=== PATIENT | male | born 1940 | race African-American/Black ===

== ENCOUNTER 2019-11-05 20:01 | Emergency (ER) | payer OTHER ==
[~2019-11-05] VITALS: Ht 167.6 cm; Wt 80.7 kg
[~2019-11-05 20:01] MED LIST: AMLO-483; ASPI81CH43; CLOP75TA28; CYCL5TAB; GLIM-5; LOSARTIN; METF-370; METF-916; METO50TA15; PRAVASTATIN; [UNRECOGNIZED DRUG - CODE]
[2019-11-05 21:57] LABS: Basophils # (auto) 0 10 ^3/uL (0-0.2); Basophils % (auto) 0.5 % (0.0-2.0); Eosinophils # (auto) 0.2 10 ^3/uL (0-0.8); Hematocrit 40.3 % (41.0-53.0); Hemoglobin 13.5 g/dL (13.5-17.5); Lymphocytes # (auto) 1.4 10 ^3/uL (0.4-5.4); Lymphocytes % (auto) 21.9 % (10.0-50.0); Mean Corpuscular Hemoglobin 30.8 pg (28.0-32.0); Mean Corpuscular Hgb Conc. 33.4 g/dL (32.0-36.0); Monocytes # (auto) 0.8 10 ^3/uL (0-1.3); Monocytes % (auto) 11.8 % (0.0-12.0); Neutrophils % (auto) 62.8 % (37.0-80.0); Nucleated Red Blood Cells % 0.1 %; Platelet Count (auto) 184 10^3/uL (140-450); Red Blood Cells 4.38 10^6/uL (4.5-5.90); Red Cell Distribution Width 13.2 % (11.8-14.3); White Blood Cell 6.4 10^3/uL (4.4-10.8)
[2019-11-05 22:17] LABS: Albumin 4.2 g/dL (3.4-5.0); Calcium 8.7 mg/dL (8.5-10.1); Potassium 3.9 mmol/L (3.5-5.1)
[2019-11-05 22:23] LABS: BUN/Creatinine Ratio 14.3; Bilirubin, Total 0.8 mg/dL (0.2-1.0); Total Protein 7.3 g/dL (6.4-8.2)
[2019-11-06 01:44] VITALS: BP 154/86
== END 2019-11-06 01:45 | disposition home or self-care (01) ==
LOC: ER 20:03
DX: R53.1 Weakness (principal); R22.0 Localized swelling, mass and lump, head; R20.0 Anesthesia of skin; R47.81 Slurred speech; E11.9 Type 2 diabetes mellitus without complications; E78.5 Hyperlipidemia, unspecified; I10 Essential (primary) hypertension; Z86.73 Personal history of transient ischemic attack (TIA), and cerebral infarction without residual deficits
CPT/HCPCS: 36415; 70450; 70486; 72125; 80053; 85025

== ENCOUNTER 2021-10-29 13:53 | Emergency (ER) | payer OTHER ==
[~2021-10-29] VITALS: Ht 167.6 cm; Wt 77.0 kg
[~2021-10-29 13:53] MED LIST changes: +CYCL-837; -CYCL5TAB
[2021-10-29 14:07] VITALS: BP 122/60
[2021-10-29 14:39] LABS: Basophils # (auto) 0 10 ^3/uL (0-0.2); Basophils % (auto) 0.5 % (0.0-2.0); Eosinophils # (auto) 0.1 10 ^3/uL (0-0.8); Eosinophils % (auto) 2.4 % (0.0-7.0); Hematocrit 40.8 % (41.0-53.0); Hemoglobin 12.6 g/dL (13.5-17.5); Lymphocytes # (auto) 0.8 10 ^3/uL (0.4-5.4); Lymphocytes % (auto) 17.5 % (10.0-50.0); Mean Corpuscular Hemoglobin 29.3 pg (28.0-32.0); Mean Corpuscular Volume 94.3 fL (80.0-100.0); Monocytes # (auto) 0.4 10 ^3/uL (0-1.3); Monocytes % (auto) 8.7 % (0.0-12.0); Neutrophils # (auto) 3.4 10 ^3/uL (1.6-8.6); Neutrophils % (auto) 70.9 % (37.0-80.0); Nucleated Red Blood Cells % 0.1 %; Red Blood Cells 4.32 10^6/uL (4.5-5.90); Red Cell Distribution Width 13.2 % (11.8-14.3); White Blood Cell 4.8 10^3/uL (4.4-10.8)
[2021-10-29 14:47] LABS: INR 1.09 (0.9-1.15); Partial Thromboplastin Time 27.8 sec (24.6-33.4)
[2021-10-29 17:37] LABS: Albumin 3.9 g/dL (3.4-5.0); Calcium 8.9 mg/dL (8.5-10.1)
[2021-10-29 17:42] LABS: Total Protein 6.5 g/dL (6.4-8.2)
[2021-10-29] MEDS ORDERED: DICY10CA PO (20:27)
== END 2021-10-29 20:57 | disposition home or self-care (01) ==
LOC: ER 13:56
DX: K43.9 Ventral hernia without obstruction or gangrene (principal); E11.9 Type 2 diabetes mellitus without complications; E78.5 Hyperlipidemia, unspecified; I10 Essential (primary) hypertension
CPT/HCPCS: 36415; 71045; 80053; 84484; 85025; 85610; 85730; 93005

== ENCOUNTER 2022-12-11 05:41 | Inpatient (IN) | payer OTHER ==
[~2022-12-11] VITALS: Ht 167.6 cm; Wt 77.6 kg
[~2022-12-11 05:41] MED LIST changes: -AMLO-483; +AMLO1TAB21; +DICY10CA PO; +GLIM-38; -GLIM-5; +METF-1145; -METF-916
[2022-12-11 06:26] LABS: Basophils # (auto) 0 10 ^3/uL (0-0.2); Basophils % (auto) 0.5 % (0.0-2.0); Eosinophils # (auto) 0.2 10 ^3/uL (0-0.8); Eosinophils % (auto) 2.7 % (0.0-7.0); Hematocrit 37.9 % (41.0-53.0); Hemoglobin 12.5 g/dL (13.5-17.5); Lymphocytes # (auto) 1.1 10 ^3/uL (0.4-5.4); Lymphocytes % (auto) 17.5 % (10.0-50.0); Mean Corpuscular Hemoglobin 30.7 pg (28.0-32.0); Mean Corpuscular Hgb Conc. 32.9 g/dL (32.0-36.0); Mean Corpuscular Volume 93.2 fL (80.0-100.0); Monocytes # (auto) 0.6 10 ^3/uL (0-1.3); Monocytes % (auto) 9.6 % (0.0-12.0); Neutrophils # (auto) 4.2 10 ^3/uL (1.6-8.6); Neutrophils % (auto) 69.7 % (37.0-80.0); Nucleated Red Blood Cells % 0.1 %; Red Blood Cells 4.06 10^6/uL (4.5-5.90); Red Cell Distribution Width 13.3 % (11.8-14.3)
[2022-12-11 06:48] LABS: INR 1.14 (0.9-1.15); Partial Thromboplastin Time 27.9 SEC (24.5-34.5); Prothrombin Time 11.9 sec (9.3-11.8)
[2022-12-11 06:52] LABS: Albumin 4.1 g/dL (3.2-4.8); Alkaline Phosphatase 73 U/L (46-116); Anion Gap 5 (5-15); Aspartate Aminotransferase < 8 U/L (13-40); BUN/Creatinine Ratio 9.5 (10.0-20.0); Blood Urea Nitrogen 10 mg/dL (9-23); Carbon Dioxide 27 mmol/L (20-30); Chloride 108 mmol/L (98-107); Glucose 155 mg/dL (74-106); Magnesium 1.6 mg/dL (1.6-2.6); Potassium 4.2 mmol/L (3.5-5.1); Sodium 140 mmol/L (136-145)
[2022-12-11 06:53] LABS: Bilirubin, Total 1.3 mg/dL (0.2-1.0); Total Protein 6.2 g/dL (5.7-8.2)
[2022-12-11 07:05] LABS: Alanine Aminotransferase < 9 U/L (7-40)
[2022-12-11 07:53] LABS: Urine Bacteria NONE SEEN /hpf (None Seen); Urine Blood Negative /uL (Negative); Urine Clarity Clear (Clear); Urine Color Yellow (Yellow); Urine Protein, UAD Negative (Negative); Urine Specific Gravity 1.015 (1.001-1.035); Urine Urobilinogen Normal (Negative); Urine WBC 1 /hpf (0 - 3); Urine pH 6.5 (5.0-8.0)
[2022-12-11 10:43] VITALS: O2SAT 98
[2022-12-11] MEDS ORDERED: ASPirin 81 mg TAB PO ONE (12:00)
[2022-12-11] MEDS ORDERED: ONDANSETRON HCL 4 MG/2 ML VIAL IV PRN (17:15)
[2022-12-11] MEDS ORDERED: NITROGLYCERIN 0.4 MG SL TAB SL PRN (17:15)
[2022-12-11] MEDS ORDERED: DEXTROSE (50%) 50ML SYRG IV PRN (17:15)
[2022-12-11] MEDS ORDERED: MORPHINE SULFATE 4 MG/ML SYR/VIAL IV PRN (17:15)
[2022-12-11] MEDS ORDERED: hydrALAZINE HCL 20 MG/ML VL IV PRN (17:15)
[2022-12-11] MEDS ORDERED: MORPHINE SULFATE INJ 2 MG/ml SYRG IV PRN ×2 (17:15)
[2022-12-11] MEDS ORDERED: DICYCLOMINE HCL 10 MG CAP PO PRN (17:15)
[2022-12-11] MEDS ORDERED: LISINOPRIL 10 MG TAB PO SCH (18:00)
[2022-12-11 21:52] VITALS: BP 137/86; PULSE 75; RESP 16; TEMP 97.8; O2SAT 98
[2022-12-11] MEDS: NITROGLYCERIN 2.5 MG CAP PO SCH (22:00)
[2022-12-11] MEDS ORDERED: ATORVASTATIN 20 MG TAB PO SCH (22:00)
[2022-12-11] MEDS ORDERED: FURO1TAB33 PO (22:16)
[2022-12-11] MEDS ORDERED: TRAZ-228 PO (22:16)
[2022-12-11] MEDS ORDERED: POTA10TA51 PO (22:16)
[2022-12-11] MEDS ORDERED: LOSA100T58 PO (22:16)
[2022-12-11] MEDS: FAMOTIDINE 20 MG TAB PO SCH (22:34)
[2022-12-11] MEDS: METOPROLOL TARTRATE 25 MG TAB PO SCH (22:34)
[2022-12-11] MEDS: ACCU-CHEK COMFORT CURVE STRIP VI SCH (22:34)
[2022-12-11] MEDS: InsuLIN REG 1unit/0.01ml Soln (100units/ml) SC SCH (22:44)
[2022-12-12 05:00] VITALS: BP 141/78; PULSE 63; RESP 18; TEMP 97.8; O2SAT 96
[2022-12-12] MEDS: ACCU-CHEK COMFORT CURVE STRIP VI SCH ×2 (05:51→11:30)
[2022-12-12] MEDS: InsuLIN REG 1unit/0.01ml Soln (100units/ml) SC SCH ×2 (05:51→11:30)
[2022-12-12 06:55] LABS: Basophils # (auto) 0 10 ^3/uL (0-0.2); Basophils % (auto) 0.4 % (0.0-2.0); Eosinophils # (auto) 0.1 10 ^3/uL (0-0.8); Eosinophils % (auto) 2.2 % (0.0-7.0); Hematocrit 38.3 % (41.0-53.0); Hemoglobin 12.7 g/dL (13.5-17.5); Lymphocytes # (auto) 0.8 10 ^3/uL (0.4-5.4); Lymphocytes % (auto) 13.1 % (10.0-50.0); Mean Corpuscular Hemoglobin 30.6 pg (28.0-32.0); Mean Corpuscular Hgb Conc. 33.2 g/dL (32.0-36.0); Mean Corpuscular Volume 92.1 fL (80.0-100.0); Monocytes # (auto) 0.6 10 ^3/uL (0-1.3); Monocytes % (auto) 10.4 % (0.0-12.0); Neutrophils # (auto) 4.3 10 ^3/uL (1.6-8.6); Neutrophils % (auto) 73.9 % (37.0-80.0); Nucleated Red Blood Cells % 0.1 %; Red Blood Cells 4.16 10^6/uL (4.5-5.90); Red Cell Distribution Width 13.1 % (11.8-14.3); White Blood Cell 5.8 10^3/uL (4.4-10.8)
[2022-12-12 07:00] LABS: Albumin 3.9 g/dL (3.2-4.8); Alkaline Phosphatase 68 U/L (46-116); Aspartate Aminotransferase 9 U/L (13-40); BUN/Creatinine Ratio 10.7 (10.0-20.0); Bilirubin, Total 1.4 mg/dL (0.2-1.0); Blood Urea Nitrogen 9 mg/dL (9-23); Carbon Dioxide 27 mmol/L (20-30); Cholesterol 129 mg/dL (< 200); Glucose 81 mg/dL (74-106); HDL Cholesterol 48 mg/dL (40-59); LDL Cholesterol 64 mg/dL (< 100); Triglycerides 67 mg/dL (< 150)
[2022-12-12 07:32] LABS: Anion Gap 8 (5-15); Chloride 106 mmol/L (98-107); Potassium 3.5 mmol/L (3.5-5.1); Sodium 141 mmol/L (136-145)
[2022-12-12 07:33] LABS: Alanine Aminotransferase < 9 U/L (7-40)
[2022-12-12 08:00] VITALS: BP 126/67; PULSE 64; PULSE 65; RESP 19; TEMP 97.5; O2SAT 97
[2022-12-12 08:55] VITALS: BP 126/67; PULSE 64; RESP 19; TEMP 97.5; O2SAT 97
[2022-12-12] MEDS ORDERED: ASPirin 81 mg TAB PO SCH (10:00)
[2022-12-12] MEDS ORDERED: HCTZ 25 MG TAB PO SCH (10:00)
[2022-12-12] MEDS ORDERED: NITROGLYCERIN 0.4 MG SL TAB SL ONE (10:00)
[2022-12-12] MEDS ORDERED: ENOXAPARIN SOD 40 MG/0.4 ML SYRINGE SC SCH (10:00)
[2022-12-12] MEDS ORDERED: CLOPIDOGREL BISULFATE 75 MG TAB PO SCH (10:00)
[2022-12-12] MEDS: NITROGLYCERIN 2.5 MG CAP PO SCH (10:00)
[2022-12-12] MEDS: FAMOTIDINE 20 MG TAB PO SCH (11:06)
[2022-12-12] MEDS: METOPROLOL TARTRATE 25 MG TAB PO SCH (11:08)
[2022-12-12 11:37] LABS: Lipase 52 U/L (12-53)
[2022-12-12 13:02] VITALS: BP 155/75; PULSE 69; RESP 19; TEMP 98.4; O2SAT 96
[2022-12-12] MEDS ORDERED: PANT40T PO (15:59)
== END 2022-12-12 17:45 | disposition home or self-care (01) | DRG 392 ==
LOC: ER 05:41 → TELE 17:11 → TELE-EAST 21:52
PROVIDERS: ADMIT Hospitalist; ATTEND Hospitalist
DX: K21.9 Gastro-esophageal reflux disease without esophagitis (principal); I25.10 Atherosclerotic heart disease of native coronary artery without angina pectoris; I10 Essential (primary) hypertension; E78.5 Hyperlipidemia, unspecified; I70.0 Atherosclerosis of aorta; E11.9 Type 2 diabetes mellitus without complications; Z82.49 Family history of ischemic heart disease and other diseases of the circulatory system; Z86.79 Personal history of other diseases of the circulatory system; K46.9 Unspecified abdominal hernia without obstruction or gangrene
CPT/HCPCS: 36415; 71045; 80053; 80061; 81001; 82962; 83036; 83690; 83735; 83880; 84484; 85025; 85610; 85730; 93005; 93306; G0378; J1815

== ENCOUNTER 2023-03-21 07:10 | Emergency (ER) | payer OTHER ==
[~2023-03-21] VITALS: Ht 167.6 cm; Wt 77.7 kg
[~2023-03-21 07:10] MED LIST changes: -CLOP75TA28; -CYCL-837; -DICY10CA PO; +FURO1TAB33 PO; -GLIM-38; +LOSA100T58 PO; +PANT40T PO; +POTA10TA51 PO; +TRAZ-228 PO
[2023-03-21 08:53] LABS: Basophils # (auto) 0 10 ^3/uL (0-0.2); Basophils % (auto) 0.4 % (0.0-2.0); Eosinophils # (auto) 0.2 10 ^3/uL (0-0.8); Eosinophils % (auto) 2.5 % (0.0-7.0); Hematocrit 43.1 % (41.0-53.0); Hemoglobin 13.6 g/dL (13.5-17.5); Lymphocytes % (auto) 15.9 % (10.0-50.0); Mean Corpuscular Hemoglobin 30.2 pg (28.0-32.0); Mean Corpuscular Hgb Conc. 31.5 g/dL (32.0-36.0); Mean Corpuscular Volume 95.8 fL (80.0-100.0); Monocytes # (auto) 0.7 10 ^3/uL (0-1.3); Monocytes % (auto) 11.7 % (0.0-12.0); Neutrophils # (auto) 4.3 10 ^3/uL (1.6-8.6); Neutrophils % (auto) 69.5 % (37.0-80.0); Nucleated Red Blood Cells % 0.1 %; Red Cell Distribution Width 13.2 % (11.8-14.3); White Blood Cell 6.1 10^3/uL (4.4-10.8)
[2023-03-21 09:16] LABS: Anion Gap 3 (5-15); Carbon Dioxide 30 mmol/L (20-30); Chloride 108 mmol/L (98-107); Potassium 4.3 mmol/L (3.5-5.1); Sodium 141 mmol/L (136-145)
[2023-03-21 09:17] LABS: Calcium 9.8 mg/dL (8.5-10.1)
[2023-03-21 09:22] LABS: BUN/Creatinine Ratio 7.8 (10.0-20.0); Blood Urea Nitrogen 8 mg/dL (9-23); Glucose 148 mg/dL (74-106)
[2023-03-21 09:26] LABS: INR 1.09 (0.9-1.15); Prothrombin Time 11.4 sec (9.3-11.8)
[2023-03-21] MEDS ORDERED: IOHEXOL 350 MG/ML 100ML IJ ONE (09:31)
[2023-03-21 10:11] LABS: Erythrocyte Sedimentation Rate 2 mm/hr (0-20)
[2023-03-21] MEDS ORDERED: ACET500T58 PO (13:56)
[2023-03-21 17:58] VITALS: BP 155/75; PULSE 61; RESP 16; TEMP 98.6; O2SAT 100
== END 2023-03-21 18:04 | disposition home or self-care (01) ==
LOC: ER 07:10
DX: R51.9 Headache, unspecified (principal); I10 Essential (primary) hypertension; E11.9 Type 2 diabetes mellitus without complications; E78.5 Hyperlipidemia, unspecified; Z79.82 Long term (current) use of aspirin; Z79.899 Other long term (current) drug therapy
CPT/HCPCS: 36415; 70450; 71275; 80048; 84484; 85025; 85610; 85652; 99285; Q9967

== ENCOUNTER 2023-08-12 15:22 | Inpatient (IN) | payer OTHER ==
[~2023-08-12] VITALS: Ht 167.6 cm; Wt 78.7 kg
[~2023-08-12 15:22] MED LIST changes: +ACET500T58 PO; +LOSA-535 PO; -LOSA100T58 PO; +POTA-36 PO; -POTA10TA51 PO
[2023-08-12 15:46] LABS: Basophils # (auto) 0 10 ^3/uL (0-0.2); Basophils % (auto) 0.4 % (0.0-2.0); Eosinophils # (auto) 0.1 10 ^3/uL (0-0.8); Eosinophils % (auto) 1.7 % (0.0-7.0); Hematocrit 36.8 % (41.0-53.0); Lymphocytes # (auto) 0.8 10 ^3/uL (0.4-5.4); Lymphocytes % (auto) 12.8 % (10.0-50.0); Mean Corpuscular Hemoglobin 30.3 pg (28.0-32.0); Mean Corpuscular Hgb Conc. 32.5 g/dL (32.0-36.0); Mean Corpuscular Volume 93.2 fL (80.0-100.0); Monocytes # (auto) 0.5 10 ^3/uL (0-1.3); Monocytes % (auto) 7.7 % (0.0-12.0); Neutrophils # (auto) 4.9 10 ^3/uL (1.6-8.6); Neutrophils % (auto) 77.4 % (37.0-80.0); Nucleated Red Blood Cells % 0.1 %; Red Blood Cells 3.95 10^6/uL (4.5-5.90); Red Cell Distribution Width 13.5 % (11.8-14.3); White Blood Cell 6.3 10^3/uL (4.4-10.8)
[2023-08-12 16:00] LABS: Alanine Aminotransferase 11 U/L (7-40); Albumin 3.9 g/dL (3.2-4.8); Alkaline Phosphatase 70 U/L (46-116); Anion Gap 5 (5-15); Aspartate Aminotransferase 9 U/L (13-40); Blood Urea Nitrogen 7 mg/dL (9-23); Calcium 9.4 mg/dL (8.7-10.4); Carbon Dioxide 25 mmol/L (20-30); Chloride 109 mmol/L (98-107); Glucose 240 mg/dL (74-106); Sodium 139 mmol/L (136-145)
[2023-08-12 16:01] LABS: Bilirubin, Total 1.3 mg/dL (0.2-1.0)
[2023-08-12 18:25] LABS: Urine Bacteria None Seen /hpf (None Seen)
[2023-08-12 18:39] LABS: Urine Blood Negative /uL (Negative); Urine Clarity Clear (Clear); Urine Color Yellow (Yellow); Urine Hyaline Cast FEW /lpf (0 - 2); Urine Mucus FEW (None Seen); Urine Protein, UAD TRACE (Negative); Urine Specific Gravity 1.025 (1.001-1.035); Urine Urobilinogen 8 mg/dL (Negative); Urine WBC 2 /hpf (0 - 3); Urine pH 6.5 (5.0-9.0)
[2023-08-12] MEDS ORDERED: DEXTROSE (50%) 50ML SYRG IV PRN (20:30)
[2023-08-12] MEDS ORDERED: ONDANSETRON HCL 4 MG/2 ML VIAL IV PRN (20:30)
[2023-08-12 21:25] VITALS: PULSE 66; RESP 16; O2SAT 96
[2023-08-12] MEDS ORDERED: NITROGLYCERIN 0.4 MG SL TAB SL PRN (21:45)
[2023-08-12] MEDS ORDERED: MET50T PO (21:48)
[2023-08-12] MEDS ORDERED: PRAV20TA3 PO (21:51)
[2023-08-12] MEDS: InsuLIN REG 1unit/0.01ml Soln (100units/ml) SC SCH (22:00)
[2023-08-12] MEDS: SODIUM CHLORIDE 0.9% 1,000 ML IV ONE ×2 (22:01)
[2023-08-12] MEDS: ACCU-CHEK COMFORT CURVE STRIP VI SCH (22:19)
[2023-08-12] MEDS: hydrALAZINE HCL 20 MG/ML VL IV PRN (22:39)
[2023-08-12 23:49] VITALS: BP 167/80; PULSE 79; RESP 18; TEMP 98; O2SAT 98
[2023-08-13] VITALS (8 sets, daily range): BP systolic 136–168; BP diastolic 67–90; PULSE 61–96; RESP 18–20; TEMP 97.8–98.9; O2SAT 96–100
[2023-08-13] MEDS: amLODIPine BESYLATE 5 MG TAB PO ONE (02:26)
[2023-08-13] MEDS: ACETAMINOPHEN 325 MG TAB PO PRN (05:34)
[2023-08-13] MEDS ORDERED: PATIENTS OWN MEDICATION (Trazodone Hcl 1 TAB) PO PRN (06:15)
[2023-08-13 06:44] LABS: Chloride 111 mmol/L (98-107); Potassium 3.5 mmol/L (3.5-5.1); Sodium 142 mmol/L (136-145)
[2023-08-13 06:45] LABS: Anion Gap 4 (5-15); Calcium 8.9 mg/dL (8.5-10.1); Carbon Dioxide 27 mmol/L (20-30)
[2023-08-13 06:50] LABS: BUN/Creatinine Ratio 13.9 (10.0-20.0); Blood Urea Nitrogen 10 mg/dL (9-23)
[2023-08-13 06:52] LABS: Glucose 74 mg/dL (74-106)
[2023-08-13] MEDS ORDERED: IOHEXOL 350 MG/ML 100ML IJ ONE ×2 (08:28→11:30)
[2023-08-13] MEDS ORDERED: PATIENTS OWN MEDICATION (Losartan Potassium 1 TAB) PO SCH (10:00)
[2023-08-13] MEDS: METOPROLOL TARTRATE 50 MG TAB PO SCH (10:51)
[2023-08-13] MEDS: LOSARTAN POTASSIUM 50 MG TAB PO SCH (10:51)
[2023-08-13] MEDS: ENOXAPARIN SOD 40 MG/0.4 ML SYRINGE SC SCH (10:51)
[2023-08-13] MEDS: PRAVASTATIN SODIUM 20 MG TAB PO SCH (10:52)
[2023-08-13] MEDS: amLODIPine BESYLATE 5 MG TAB PO SCH (10:52)
[2023-08-13] MEDS: ASPirin 81 mg TAB PO SCH (10:53)
[2023-08-13] MEDS: FAMOTIDINE 20 MG TAB PO SCH (10:53)
[2023-08-13] MEDS: IBUPROFEN 400 MG TAB PO PRN (18:04)
[2023-08-13] MEDS: traZODone HCL 50 MG TAB PO PRN (22:30)
[2023-08-14] VITALS (8 sets, daily range): BP systolic 137–154; BP diastolic 68–91; PULSE 68–110; RESP 14–19; TEMP 97.8–98.5; O2SAT 96–100
[2023-08-14] MEDS: amLODIPine BESYLATE 5 MG TAB PO SCH (10:11)
[2023-08-14] MEDS: REGADENOSON 0.4 MG/5 ML SYRG IV ONE ×2 (13:44→13:50)
[2023-08-15 06:43] VITALS: BP 143/78; PULSE 87; RESP 16; TEMP 97.7; O2SAT 96
[2023-08-15 06:44] VITALS: BP 132/81; PULSE 84; RESP 16; TEMP 97.8; O2SAT 96
[2023-08-15 07:30] VITALS: PULSE 84; O2SAT 97
[2023-08-15 08:50] VITALS: BP 135/84; PULSE 82; RESP 18; TEMP 98.6; O2SAT 98
[2023-08-15 13:00] VITALS: BP 149/74; PULSE 66; RESP 95; TEMP 98.6; O2SAT 93
[2023-08-15] MEDS ORDERED: PANT40T PO (13:27)
[2023-08-15] MEDS ORDERED: LOSA-535 PO (13:27)
[2023-08-15 15:11] VITALS: BP 135/84; PULSE 82; RESP 18; TEMP 37; O2SAT 97
== END 2023-08-15 15:50 | disposition home or self-care (01) | DRG 206 ==
LOC: ER 15:22 → TELE 20:44 → TELE-CENTR 23:48 → OBSVTOIN 08-14 08:33
PROVIDERS: ADMIT Nurse Practitioner Family; ATTEND Nurse Practitioner Family
DX: M94.0 Chondrocostal junction syndrome [Tietze] (principal); E11.9 Type 2 diabetes mellitus without complications; I10 Essential (primary) hypertension; F32.A Depression, unspecified; F41.9 Anxiety disorder, unspecified; K21.9 Gastro-esophageal reflux disease without esophagitis; R62.7 Adult failure to thrive; E78.5 Hyperlipidemia, unspecified; I71.20 Thoracic aortic aneurysm, without rupture, unspecified; Z79.1 Long term (current) use of non-steroidal anti-inflammatories (NSAID); Z79.899 Other long term (current) drug therapy; Z79.82 Long term (current) use of aspirin; Z79.84 Long term (current) use of oral hypoglycemic drugs; Z87.891 Personal history of nicotine dependence; Z68.28 Body mass index [BMI] 28.0-28.9, adult
CPT/HCPCS: 36415; 71046; 71275; 80048; 80053; 81001; 82607; 82962; 83036; 84484; 85025; 93005; 93017; 93306; 96361; 96374; 97110; 97163; G0378; J1815

== ENCOUNTER 2024-03-09 10:58 | Emergency (ER) | payer OTHER ==
[~2024-03-09] VITALS: Ht 167.6 cm; Wt 80.0 kg
[~2024-03-09 10:58] MED LIST changes: -AMLO1TAB21; -FURO1TAB33 PO; -LOSARTIN; +MET50T PO; -METF-370; -METO50TA15; -POTA-36 PO; +PRAV20TA3 PO; -PRAVASTATIN
--- NOTE | 2024-03-09 11:16 | ECG ---
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
--- NOTE | 2024-03-09 11:39 | ED.PDOC ---
HPI Comments 83-year-old male who comes in with chief complaint of chest pain and headache since last night. The patient states that the symptoms started at home. The pain in his chest is left-sided and described as tightness in the chest. He rates it as a 6/10. He denies any shortness a breath. He states that he has has a history of this in the past but has never had a heart attack in the past. He did take his 81 mg of aspirin this morning. The patient states that the chest pain is nonradiating at this time. The patient was also having a left- sided headache that he rates as a 7/10. There has been no fevers or chills. The patient was able to ambulate into the emergency department's without any difficulty. Chief Complaint: Chest Pain Time Seen by MD: 11:08 Primary Care Provider: nicole Wheat Notes: Nurses Notes, Medications, Allergies (No allergies to medications) Allergies: Coded Allergies: NO KNOWN ALLERGIES (Unverified , 03/18/11) Home Meds Active Scripts Pantoprazole Sodium Sesquihydr (Pantoprazole Sodium) 40 Mg Tab, 40 MG PO DAILY, #60 TAB Prov:DIANNA JEAN BAPTISTE MD 08/15/23 Losartan Potassium (Losartan Potassium) 100 Mg Tab, 1 TAB PO DAILY, #60 TAB Prov:DIANNA JEAN BAPTISTE MD 08/15/23 Acetaminophen (Acetaminophen) 500 Mg Tab, 500 MG PO Q6HP PRN for 5 Days, #20 TAB Prov:JOEL SOUSA MD 03/21/23 Reported Medications Pravastatin Sodium (PRAVACHOL TABLET) 20 Mg Tb, 80 MG PO DAILY, TAB 08/12/23 Metoprolol Tartrate (LOPRESSOR TABLET) 50 Mg Tb, 50 MG PO DAILY, TAB 08/12/23 Trazodone Hcl (Trazodone Hcl) 100 Mg Tab, 1 TAB PO QHSP PRN for FOR INSOMNIA 12/11/22 Nitroglycerin (Nitroglycerin) 0.3 Mg Sub 03/19/11 Aspirin (Asa) 81 Mg Ch 03/19/11 Metformin Hydrochloride (Metformin Hcl Er) 500 Mg Tab 03/18/11 Information Source: Patient Mode of Arrival: Ambulatory Severity: Moderate Timing: Hours Duration: Since onset Prehospital treatment: None Location: Chest (L) Radiation: No Radiation Quality: Pressure, Tightness Onset: At Rest Cardiac Risk Factors: Family History, Hyperlipidemia, HTN, Diabetes PE Risk Factors: None History of: Similar pain in past Modifying Factors: Nothing Associated Signs and Symptoms: Other (The patient was also complaining of a headache) Past Medical History PAST MEDICAL HISTORY: Depression, DM, High Lipids, HTN Family History Family History: Family hx of heart chuck Social History Smoker: Non-Smoker Alcohol: Denies ETOH Use Drugs: Denies Drug Use Lives In: Home Physical Exam General Appearance: Mild Distress HEENT: Normal ENT Inspection, Pharynx Normal, TMs Normal Neck: Full Range of Motion, Non-Tender, Normal, Normal Inspection Respiratory: Chest Non-Tender, Lungs Clear, No Accessory Muscle Use, No Respiratory Distress, Normal Breath Sounds Cardiovascular: No Edema, No JVD, No Murmur, No Gallop, Normal Peripheral Pulses, Regular Rate/Rhythm Breast Exam: Deferred Gastrointestinal: No Organomegaly, Non Tender, No Pulsatile Mass, Normal Bowel Sounds, Soft Genitalia: Deferred Pelvic: Deferred Rectal: Deferred Extremities: No calf tenderness, Normal capillary refill, Normal inspection, Normal range of motion, Non-tender, No pedal edema Musculoskeletal : Apperance: Normal 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 Was a procedure done?: No CP Differential Dx Differential Diagnosis: Angina, IA, Pulmonary Embolus Differential Diagnosis: CHF Differential Diagnosis: Pericarditis X-Ray, Labs, Meds, VS Vital Signs Date Time Temp Pulse Resp B/P (MAP) Pulse Ox O2 Delivery O2 Flow Rate FiO2 03/09/24 15:04 98.9 69 15 146/79 (101) 99 98.9 03/09/24 13:48 64 03/09/24 11:55 66 03/09/24 11:39 66 03/09/24 11:10 98.4 65 17 193/78 (116) 95 03/09/24 11:04 66 Lab Test 03/09/24 13:52 03/09/24 12:05 03/09/24 11:12 Range/Units Troponin I High Sensitivity 3 L 5 5 </=54 ng/L White Blood Count 5.1 4.4-10.8 10^3/uL Red Blood Count 4.30 L 4.5-5.90 10^6/uL Hemoglobin 13.3 L 13.5-17.5 g/dL Hematocrit 40.7 L 41.0-53.0 % Mean Corpuscular Volume 94.6 80.0-100.0 fL Mean Corpuscular Hemoglobin 30.9 28.0-32.0 pg Mean Corpuscular Hemoglobin Concent 32.7 32.0-36.0 g/dL Red Cell Distribution Width 13.1 11.8-14.3 % Platelet Count 163 140-450 10^3/uL Mean Platelet Volume 10.1 6.9-10.8 fL Neutrophils (%) (Auto) 71.5 37.0-80.0 % Lymphocytes (%) (Auto) 15.8 10.0-50.0 % Monocytes (%) (Auto) 10.1 0.0-12.0 % Eosinophils (%) (Auto) 2.1 0.0-7.0 % Basophils (%) (Auto) 0.5 0.0-2.0 % Neutrophils # (Auto) 3.7 1.6-8.6 10 ^3/uL Lymphocytes # (Auto) 0.8 0.4-5.4 10 ^3/uL Monocytes # (Auto) 0.5 0-1.3 10 ^3/uL Eosinophils # (Auto) 0.1 0-0.8 10 ^3/uL Basophils # (Auto) 0 0-0.2 10 ^3/uL Nucleated Red Blood Cells 0.0 % Sodium Level 140 136-145 mmol/L Potassium Level 4.3 3.5-5.1 mmol/L Chloride Level 105 98-107 mmol/L Carbon Dioxide Level 29 20-31 mmol/L Anion Gap 6 5-15 Blood Urea Nitrogen 10 9-23 mg/dL Creatinine 1.03 0.700-1.30 mg/dL Glomerular Filtration Rate Calc 73 >90 mL/min BUN/Creatinine Ratio 9.7 L 10.0-20.0 Serum Glucose 244 H 74-106 mg/dL Calcium Level 9.8 8.7-10.4 mg/dL Magnesium Level 1.7 1.6-2.6 mg/dL Total Bilirubin 1.4 H 0.2-1.0 mg/dL Aspartate Amino Transferase (AST) 12 L 13-40 U/L Alanine Aminotransferase (ALT) 10 7-40 U/L Alkaline Phosphatase 85 46-116 U/L B-Type Natriuretic Peptide 95.05 0-100 pg/mL Total Protein 6.5 5.7-8.2 g/dL Albumin 4.2 3.2-4.8 g/dL IV Hep-Lock was established The patient was already taken aspirin prior to arrival in the emergency department's The blood pressure was elevated at 190 3/78 The patient also has a accelerated hypertension CHEST RADIOGRAPH IMPRESSION: No acute disease. The patient's CBC is within normal limits The chemistry panel shows hyperglycemia at 244 The troponin level x3 is negative We contacted the hospitalist and stated that the patient needs to be admitted at this time. The hospitalist ordered a CT scan of the chest to rule out a PE which was negative. We then spoke with the hospitalist and he states that he is going to set the patient up with a cardiology visit tomorrow. The hospitalist is now discharged in the patient. Images Reviewed?: Images reviewed and evaluated by me Time of 1ST Reevaluation: 11:38 Reevaluation 1ST: Unchanged Patient Education/Counseling: Diagnosis, Treatment, Prognosis Family Education/Counseling: No Family Present Departure 1 Departure Time of Disposition: 11:38 Impression: Primary Impression: Acute coronary syndrome Additional Impression: Accelerated hypertension Disposition: 09 ADMITTED INPATIENT Condition: Fair Discharged With: Self Critical Care Note Critical Care Time?: No Stability Stability form required: Yes Unstable for transfer: Telemetry monitoring (Telemetry monitoring required), ED Physician Assesment (Clinical assesment) Heart Score Heart Score: Heart Score Response (Comments) Value History Moderate Suspicious 1 EKG Repolarization Disturb 1 Age >65 2 Risk Factors >3 or Hx ASHD 2 Troponin Normal limit 0 Total 6 I personally scribed for SHAHID MCMAHON MD ([email or web address]) on 03/09/24 at 12:07. Electronically submitted by Diane Gomez ([facility]). SHAHID MCMAHON MD Mar 09, 2024 11:39
--- NOTE | 2024-03-09 11:42 | DVH ---
CHEST RADIOGRAPH Indication: CP Technique: Single frontal view of the chest was obtained COMPARISON: XY CHEST PORTABLE on DOS: 12/11/22, CHEST PORTABLE on DOS: 10/29/21, CXRP on DOS: 10/29/21 FINDINGS: Lines and Tubes: None Lungs: Clear Pleura: No effusion. No pneumothorax. Cardiomediastinal contours: Unremarkable Bones: Unremarkable IMPRESSION: No acute disease.
--- NOTE | 2024-03-09 11:56 | ECG ---
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
[2024-03-09 12:04] LABS: Basophils # (auto) 0 10 ^3/uL (0-0.2); Basophils % (auto) 0.5 % (0.0-2.0); Eosinophils # (auto) 0.1 10 ^3/uL (0-0.8); Eosinophils % (auto) 2.1 % (0.0-7.0); Hematocrit 40.7 % (41.0-53.0); Hemoglobin 13.3 g/dL (13.5-17.5); Lymphocytes # (auto) 0.8 10 ^3/uL (0.4-5.4); Lymphocytes % (auto) 15.8 % (10.0-50.0); Mean Corpuscular Hemoglobin 30.9 pg (28.0-32.0); Mean Corpuscular Hgb Conc. 32.7 g/dL (32.0-36.0); Mean Corpuscular Volume 94.6 fL (80.0-100.0); Monocytes # (auto) 0.5 10 ^3/uL (0-1.3); Monocytes % (auto) 10.1 % (0.0-12.0); Neutrophils # (auto) 3.7 10 ^3/uL (1.6-8.6); Neutrophils % (auto) 71.5 % (37.0-80.0); Platelet Count (auto) 163 10^3/uL (140-450); Red Cell Distribution Width 13.1 % (11.8-14.3); White Blood Cell 5.1 10^3/uL (4.4-10.8)
[2024-03-09 12:31] LABS: Alanine Aminotransferase 10 U/L (7-40); Albumin 4.2 g/dL (3.2-4.8); Alkaline Phosphatase 85 U/L (46-116); Anion Gap 6 (5-15); BUN/Creatinine Ratio 9.7 (10.0-20.0); Blood Urea Nitrogen 10 mg/dL (9-23); Calcium 9.8 mg/dL (8.7-10.4); Carbon Dioxide 29 mmol/L (20-31); Chloride 105 mmol/L (98-107); Magnesium 1.7 mg/dL (1.6-2.6); Potassium 4.3 mmol/L (3.5-5.1); Sodium 140 mmol/L (136-145)
[2024-03-09 12:32] LABS: Total Protein 6.5 g/dL (5.7-8.2)
[2024-03-09 12:42] LABS: Aspartate Aminotransferase 12 U/L (13-40); Bilirubin, Total 1.4 mg/dL (0.2-1.0); Glucose 244 mg/dL (74-106)
--- NOTE | 2024-03-09 13:49 | ECG ---
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
[2024-03-09] MEDS: IOHEXOL 350 MG/ML 100ML IJ ONE (14:32)
--- NOTE | 2024-03-09 14:58 | DVH ---
INDICATION: chest pain COMPARISON: 08/13/2023 TECHNIQUE: Multidetector CTA of the chest was performed of the chest with 100 cc of intravenous contr ast. PULMONARY ANGIOGRAPHY PROTOCOL was utilized using a bolus-tracking technique centered on the fidelina n pulmonary artery. Axial, coronal and sagittal multiplanar and MIP reformats were performed. Radiation Dose Information: CT Dose: CTDI volume is 5.92 mGy. Dose-length product is 421.22 mGy*cm The dose indicators for CT are the volume Computed Tomography (CT) Dose Index (CTDIvol) and the Dose Length Product (DLP), and are measured in units of mGy and mGy-cm, respectively. These indicators are not patient dose, but values generated from the CT scanner acquisition factors. The report includes radiation exposure data for exposures received during this examination. Findings: Pulmonary artery: Normal caliber of the pulmonary artery. No large central or large segmental pulmo nary embolism. Lower neck: Normal thyroid. Lungs: No focal consolidation, pulmonary mass, or suspicious pulmonary nodule. Heart/Vascular Structures: Normal heart size. Normal caliber and enhancement of the aorta. Scattered coronary artery calcifications Lymph Nodes: Calcified subcarinal lymph nodes Pleura: No pleural effusion or significant pneumothorax. Musculoskeletal: No acute osseous abnormality. Upper abdomen: Limited portions of the upper abdomen are unremarkable. IMPRESSION: 1. No pulmonary embolism. 2. No findings of pulmonary artery hypertension 3. Elevation of the left diaphragm with stool-filled colon displacing diaphragm cephalad. NO CHANGE IN SIZE OF THE THORACIC AORTA
[2024-03-09 15:04] VITALS: BP 146/79; PULSE 69; RESP 15; TEMP 98.9; O2SAT 99
[2024-03-09] MEDS ORDERED: TRAZ-228 PO (16:27)
[2024-03-09] MEDS ORDERED: PANT40T PO (16:27)
--- NOTE | 2024-03-09 16:32 | DVHINCON2 ---
Date of service: Mar 09, 2024 Reason for Consultation UNABLE TO SLEEP DUE TO RUNNING OUT OF HIS SLEEPING MEDICATION, CHEST DISCOMFORT History of Present Illness I have seen evaluated and talked with the patient in the ER. According with the patient apparently he ran out of his trazodone and Protonix. He has been having some reflex with a chest burning and discomfort. Also been having headaches due to lack of sleep. Patient says he has unable to see his primary care physician to refill his medications. Therefore he came to the ER. He currently denies any chest pain shortness for breath. No nausea vomiting headache dizziness. Other review of systems reviewed normal. According to ER notes 83-year-old male who comes in with chief complaint of chest pain and headache since last night. The patient states that the symptoms started at home. The pain in his chest is left-sided and described as tightness in the chest. He rates it as a 6/10. He denies any shortness a breath. He states that he has has a history of this in the past but has never had a heart attack in the past. He did take his 81 mg of aspirin this morning. The patient states that the chest pain is nonradiating at this time. The patient was also having a left-sided headache that he rates as a 7/10. There has been no fevers or chills. The patient was able to ambulate into the emergency department's without any difficulty. Past Medical History Hypertension, hyperlipidemia, insomnia, GERD Past Surgical History None significant Family History: Hypertension G8 MOTHER Allergies: Coded Allergies: NO KNOWN ALLERGIES (Unverified , 03/18/11) Home Meds Active Scripts Pantoprazole Sodium Sesquihydr (Pantoprazole Sodium) 40 Mg Tab, 40 MG PO DAILY, #60 TAB Prov:DIANNA JEAN BAPTISTE MD 03/09/24 Trazodone Hcl (Trazodone Hcl) 100 Mg Tab, 1 TAB PO QHSP PRN for FOR INSOMNIA, #30 TAB Prov:DIANNA JEAN BAPTISTE MD 03/09/24 Losartan Potassium (Losartan Potassium) 100 Mg Tab, 1 TAB PO DAILY, #60 TAB Prov:DIANNA JEAN BAPTISTE MD 08/15/23 Acetaminophen (Acetaminophen) 500 Mg Tab, 500 MG PO Q6HP PRN for 5 Days, #20 TAB Prov:JOEL SOUSA MD 03/21/23 Reported Medications Pravastatin Sodium (PRAVACHOL TABLET) 20 Mg Tb, 80 MG PO DAILY, TAB 08/12/23 Metoprolol Tartrate (LOPRESSOR TABLET) 50 Mg Tb, 50 MG PO DAILY, TAB 08/12/23 Nitroglycerin (Nitroglycerin) 0.3 Mg Sub 03/19/11 Aspirin (Asa) 81 Mg Ch 03/19/11 Metformin Hydrochloride (Metformin Hcl Er) 500 Mg Tab 03/18/11 Review of Systems Other review of systems reviewed normal Vital Signs Vital Signs Date Time Temp Pulse Resp B/P (MAP) Pulse Ox O2 Delivery O2 Flow Rate FiO2 03/09/24 15:04 98.9 69 15 146/79 (101) 99 98.9 Physical Exam Comfortable sitting in a chair. Alert awake oriented x3. Pleasant gentleman without any acute distress. HEENT neck supple no JVD. Pupils equal round react to light. Heart regular rate and rhythm S1 plus S2. No murmurs gallops or rubs. Lungs fair air movement. Chest tube will expansion. No rales or wheezes. Abdomen is soft. Nontender. Positive bowel sounds. Nondistended. Extremities. No edema. Positive distal pedal pulses. Neurologic. No focal deficits. Walking without any problems. Labs/Diagnostic Data Labs Test 03/09/24 13:52 03/09/24 11:12 Range/Units Troponin I High Sensitivity 3 L </=54 ng/L White Blood Count 5.1 4.4-10.8 10^3/uL Red Blood Count 4.30 L 4.5-5.90 10^6/uL Hemoglobin 13.3 L 13.5-17.5 g/dL Hematocrit 40.7 L 41.0-53.0 % Mean Corpuscular Volume 94.6 80.0-100.0 fL Mean Corpuscular Hemoglobin 30.9 28.0-32.0 pg Mean Corpuscular Hemoglobin Concent 32.7 32.0-36.0 g/dL Red Cell Distribution Width 13.1 11.8-14.3 % Platelet Count 163 140-450 10^3/uL Mean Platelet Volume 10.1 6.9-10.8 fL Neutrophils (%) (Auto) 71.5 37.0-80.0 % Lymphocytes (%) (Auto) 15.8 10.0-50.0 % Monocytes (%) (Auto) 10.1 0.0-12.0 % Eosinophils (%) (Auto) 2.1 0.0-7.0 % Basophils (%) (Auto) 0.5 0.0-2.0 % Neutrophils # (Auto) 3.7 1.6-8.6 10 ^3/uL Lymphocytes # (Auto) 0.8 0.4-5.4 10 ^3/uL Monocytes # (Auto) 0.5 0-1.3 10 ^3/uL Eosinophils # (Auto) 0.1 0-0.8 10 ^3/uL Basophils # (Auto) 0 0-0.2 10 ^3/uL Nucleated Red Blood Cells 0.0 % Sodium Level 140 136-145 mmol/L Potassium Level 4.3 3.5-5.1 mmol/L Chloride Level 105 98-107 mmol/L Carbon Dioxide Level 29 20-31 mmol/L Anion Gap 6 5-15 Blood Urea Nitrogen 10 9-23 mg/dL Creatinine 1.03 0.700-1.30 mg/dL Glomerular Filtration Rate Calc 73 >90 mL/min BUN/Creatinine Ratio 9.7 L 10.0-20.0 Serum Glucose 244 H 74-106 mg/dL Calcium Level 9.8 8.7-10.4 mg/dL Magnesium Level 1.7 1.6-2.6 mg/dL Total Bilirubin 1.4 H 0.2-1.0 mg/dL Aspartate Amino Transferase (AST) 12 L 13-40 U/L Alanine Aminotransferase (ALT) 10 7-40 U/L Alkaline Phosphatase 85 46-116 U/L B-Type Natriuretic Peptide 95.05 0-100 pg/mL Total Protein 6.5 5.7-8.2 g/dL Albumin 4.2 3.2-4.8 g/dL Problems(with codes): (1) Generalized weakness (2) Headache (3) Accelerated hypertension (4) Acute chest pain Plan/Recommendation Patient's CT angiogram ordered in the ER does not show any acute to pathology. Patient's troponins x3 have been negative. His history is more consistent with a GERD and blood pressure from lack of sleep. Given the rest of his labs and workup is normal in the hospital I will prescribe him trazodone which he takes at home as well as pantoprazole for his GERD/chest burning symptoms. Otherwise given his clinically stable he will be discharged home from ER. However he is advised to come back to the ER if he has any new worsening or recurrent symptoms. Meantime I have also talked to on-call [facility] mental health case manager to make outpatient follow up with the health program manager as well as primary care physician this week to further evaluate and manage his symptoms as deemed appropriate. Patient verbalized understanding of this, verbalized understanding of the ER diagnosis, discharge medications and agree with the discharge follow- up plan of care. Plan discussed with: Patient DIANNA JEAN BAPTISTE MD Mar 09, 2024 16:32
== END 2024-03-09 15:56 | disposition home or self-care (01) ==
LOC: ER 10:58
DX: I24.9 Acute ischemic heart disease, unspecified (principal); I16.0 Hypertensive urgency; E11.9 Type 2 diabetes mellitus without complications; F32.A Depression, unspecified; E78.5 Hyperlipidemia, unspecified; Z79.899 Other long term (current) drug therapy; Z79.82 Long term (current) use of aspirin; Z79.84 Long term (current) use of oral hypoglycemic drugs
CPT/HCPCS: 36415; 71045; 71275; 80053; 83735; 83880; 84484; 85025; 93005; 99285; Q9967

== ENCOUNTER 2024-04-13 11:51 | Emergency (ER) | payer OTHER ==
[~2024-04-13] VITALS: Ht 167.6 cm; Wt 72.3 kg
--- NOTE | 2024-04-13 12:42 | ED.PDOC ---
History of Present Illness HPI Comments 83M presents to the ER w/ prior Hx of DM which may be associated to the c/c of urinary problems. Pt reports that last night between [id number] he has urinated 8-12 times and more throughout the night. PMHx of Depression, High Lipids and HTN. Denies chills, fever, N/V/D, SOB, CP or other associated symptom's, modifiers, or recent injures or sick contact at this time. Chief Complaint: Urinary Time Seen by MD: 12:35 Primary Care Provider: nicole Reviewed Notes: Nurses Notes, Medications, Allergies Allergies: Coded Allergies: NO KNOWN ALLERGIES (Unverified , 03/18/11) Home Meds Active Scripts Pantoprazole Sodium Sesquihydr (Pantoprazole Sodium) 40 Mg Tab, 40 MG PO DAILY, #60 TAB Prov:DIANNA JEAN BAPTISTE MD 03/09/24 Trazodone Hcl (Trazodone Hcl) 100 Mg Tab, 1 TAB PO QHSP PRN for FOR INSOMNIA, #30 TAB Prov:DIANNA JEAN BAPTISTE MD 03/09/24 Losartan Potassium (Losartan Potassium) 100 Mg Tab, 1 TAB PO DAILY, #60 TAB Prov:DIANNA JEAN BAPTISTE MD 08/15/23 Acetaminophen (Acetaminophen) 500 Mg Tab, 500 MG PO Q6HP PRN for 5 Days, #20 TAB Prov:JOEL SOUSA MD 03/21/23 Reported Medications Pravastatin Sodium (PRAVACHOL TABLET) 20 Mg Tb, 80 MG PO DAILY, TAB 08/12/23 Metoprolol Tartrate (LOPRESSOR TABLET) 50 Mg Tb, 50 MG PO DAILY, TAB 08/12/23 Nitroglycerin (Nitroglycerin) 0.3 Mg Sub 03/19/11 Aspirin (Asa) 81 Mg Ch 03/19/11 Metformin Hydrochloride (Metformin Hcl Er) 500 Mg Tab 03/18/11 Information Source: Patient Mode of Arrival: Ambulatory Severity: Moderate Timing: Hours Duration: Since onset, Hours Prehospital treatment: None Past Medical History PAST MEDICAL HISTORY: Depression, DM, High Lipids, HTN Surgical History: Denies all surgeries Family History Family History: Reviewed,noncontributory to illness, Unknown Social History Smoker: Non-Smoker Alcohol: Denies ETOH Use Drugs: Denies Drug Use Lives In: Home Constitutional: denies: chills, diaphoresis, fatigue, fever, malaise, sweats, weakness, others EENTM: denies: blurred vision, double vision, ear bleeding, ear discharge, ear drainage, ear pain, ear ringing, eye pain, eye redness, hearing loss, mouth pain, mouth swelling, nasal discharge, nose bleeding, nose congestion, nose pain, photophobia, tearing, throat pain, throat swelling, voice changes, others Respiratory: denies: cough, hemoptysis, orthopnea, SOB at rest, shortness of breath, SOB with excertion, stridor, wheezing, others Cardiovascular: denies: chest pain, dizzy spells, diaphoresis, Dyspnea on exertion, edema, irregular heart beat, left arm pain, lightheadedness, palpitations, PND, syncope, others Gastrointestinal: denies: abdomen distended, abdominal pain, blood streaked bowels, constipated, diarrhea, dysphagia, difficulty swallowing, hematemesis, melena, nausea, poor appetite, poor fluid intake, rectal bleeding, rectal pain, vomiting, others Genitourinary: reports: frequency; denies: burning, dysuria, flank pain, hematuria, incontinence, penile discharge, penile sore, pain, testicle pain, testicle swelling, urgency, others Neurological: denies: dizziness, fainting, headache, left sided numbness, left sided weakness, numbness, paresthesia, pre-existing deficit, right sided numbness, right sided weakness, seizure, speech problems, tingling, tremors, weakness, others Musculoskeletal: denies: back pain, gout, joint pain, joint swelling, muscle pain, muscle stiffness, neck pain, others Integumetry: denies: bruises, change in color, change in hair/nails, dryness, laceration, lesions, lumps, rash, wounds, others Allergic/Immunocompromised: denies: Difficulty Healing, Frequent Infections, Hives, Itching, others Hematologic/Lymphatic: denies: anemia, blood clots, easy bleeding, easy bruising, swollen glands, others Endocrine: denies: excessive hunger, excessive sweating, excessive thirst, excessive urination, flushing, intolerance to cold, intolerance to heat, unexplained weight gain, unexplained weight loss, others Psychiatric: denies: anxiety, bipolar disorder, depression, hopeless, panic disorder, schizophrenia, sleepless, suicidal, others All Other Systems: Reviewed and Negative Physical Exam General Appearance: Moderate Distress, Normal HEENT: Normal ENT Inspection, Pharynx Normal, TMs Normal Neck: Full Range of Motion, Non-Tender, Normal, Normal Inspection Respiratory: Chest Non-Tender, Lungs Clear, No Accessory Muscle Use, No Respiratory Distress, Normal Breath Sounds Cardiovascular: No Edema, No JVD, No Murmur, No Gallop, Normal Peripheral Pulses, Regular Rate/Rhythm Breast Exam: Deferred Gastrointestinal: No Organomegaly, Non Tender, No Pulsatile Mass, Normal Bowel Sounds, Soft Genitalia: Deferred Pelvic: Deferred Rectal: Deferred Extremities: No calf tenderness, Normal capillary refill, Normal inspection, Normal range of motion, Non-tender, No pedal edema Musculoskeletal : Apperance: Normal Neurologic: Alert, skin carver II-XII nml as Tested, No Motor Deficits, Normal Affect, Normal Mood, No Sensory Deficits Cerebellar Function: Normal Reflexes: Normal Skin: Dry, Normal Color, Warm Peripheral Pulses: 3+ Radial (R), 3+ Radial (L) Lymphatic: No Adenopathy Was a procedure done? Was a procedure done?: No Differential Dx Considerations may include: Hyperglycemia Electrolyte imbalance X-Ray, Labs, Meds, VS Vital Signs Date Time Temp Pulse Resp B/P (MAP) Pulse Ox O2 Delivery O2 Flow Rate FiO2 04/13/24 12:01 97.3 62 16 197/93 (127) 98 Lab Test 04/13/24 13:28 04/13/24 12:00 Range/Units Sodium Level 143 136-145 mmol/L Potassium Level 4.3 3.5-5.1 mmol/L Chloride Level 103 98-107 mmol/L Carbon Dioxide Level 32 H 20-31 mmol/L Anion Gap 8 5-15 Blood Urea Nitrogen 9 9-23 mg/dL Creatinine 0.90 0.700-1.30 mg/dL Glomerular Filtration Rate Calc 86 >90 mL/min BUN/Creatinine Ratio 10.0 10.0-20.0 Serum Glucose 124 H 74-106 mg/dL Calcium Level 10.2 8.7-10.4 mg/dL Urine Color Yellow Yellow Urine Clarity Clear Clear Urine pH 7.0 5.0-9.0 Urine Specific Odin 1.017 1.001-1.035 Urine Protein 1+ H Negative Urine Ketones Negative Negative Urine Blood Negative Negative /uL Urine Nitrite Negative Negative Urine Bilirubin Negative Negative Urine Urobilinogen 2 H Negative mg/dL Urine Leukocyte Esterase Negative Negative /uL Urine RBC 1 0 - 3 /hpf Urine Microscopic WBC 3 0-3 /HPF Urine Squamous Epithelial Cells None seen <5 /hpf Urine Bacteria None seen None Seen /hpf Urine Glucose Normal Normal mg/dL Patient alert. Complaining of frequent urination. Blood pressure slightly elevated. Answering questions. Was given clonidine. Saturation pristine on room air. No sign of any distress. Establish intravenous access. Was given fluids. Blood sugar slightly elevated to be controlled with fluids. Microalbuminuria. No sign of any urinary tract infection. Explained to the patient. Was told to follow up with his primary care physician. Was told to come back if there is any problem. Time of 1ST Reevaluation: 13:05 Reevaluation 1ST: Improved Patient Education/Counseling: Diagnosis, Treatment, Prognosis Family Education/Counseling: No Family Present Departure 1 Departure Time of Disposition: 13:04 Impression: Primary Impression: Uncontrolled diabetes mellitus Qualified Codes: E13.65 - Other specified diabetes mellitus with hyperglycemia Additional Impression: Microalbuminuria Disposition: 01 HOME / SELF CARE / HOMELESS Condition: Good Discharged With: Self Critical Care Note Critical Care Time?: No Stability Stability form required: No Heart Score Heart Score: Heart Score Response (Comments) Value History N/A 0 EKG N/A 0 Age N/A 0 Risk Factors N/A 0 Troponin N/A 0 Total 0 I personally scribed for SAMUEL FREIRE MD ([email or web address]) on 04/13/24 at 12:42. Electronically submitted by Keegan Kaiser ([email or web address]). SAMUEL FREIRE MD Apr 13, 2024 12:42
[2024-04-13 13:55] LABS: Chloride 103 mmol/L (98-107); Potassium 4.3 mmol/L (3.5-5.1); Sodium 143 mmol/L (136-145)
[2024-04-13 13:56] LABS: Anion Gap 8 (5-15); Calcium 10.2 mg/dL (8.7-10.4)
[2024-04-13 14:03] LABS: Blood Urea Nitrogen 9 mg/dL (9-23); Carbon Dioxide 32 mmol/L (20-31); Glucose 124 mg/dL (74-106)
[2024-04-13 14:33] LABS: Urine Bacteria None Seen /hpf (None Seen)
[2024-04-13 14:46] LABS: Urine Blood Negative /uL (Negative); Urine Clarity Clear (Clear); Urine Color Yellow (Yellow); Urine Protein, UAD 1+ (Negative); Urine Specific Gravity 1.017 (1.001-1.035); Urine Squamous Epithelial Cell None Seen /hpf (<5); Urine Urobilinogen 2 mg/dL (Negative); Urine WBC 3 /HPF (0-3)
[2024-04-13] MEDS: SODIUM CHLORIDE 0.9% 1,000 ML IV ONE (15:30)
[2024-04-13] MEDS: InsuLIN REG 1unit/0.01ml Soln (100units/ml) IV ONE (15:38)
[2024-04-13 15:50] VITALS: BP 180/93; PULSE 87; RESP 18; TEMP 98; O2SAT 99
[2024-04-13] MEDS: cloNIDine HCL 0.1 MG TAB PO ONE (15:58)
== END 2024-04-13 16:01 | disposition home or self-care (01) ==
LOC: ER 11:51
DX: E11.65 Type 2 diabetes mellitus with hyperglycemia (principal); R80.9 Proteinuria, unspecified; I10 Essential (primary) hypertension; F32.A Depression, unspecified; Z79.899 Other long term (current) drug therapy
CPT/HCPCS: 36415; 80048; 81001; 96360; 99283; J7030

== ENCOUNTER 2024-10-18 10:51 | Emergency (ER) | payer OTHER ==
[~2024-10-18] VITALS: Ht 167.6 cm; Wt 69.9 kg
--- NOTE | 2024-10-18 11:44 | ED.PDOC ---
GI ASSESSMENT HPI Comments 84-year-old male presents here with abdominal pain. He states for the last several days after he eats dinner he begins to have abdominal pain near the site of his hernia. He states he has had this hernia for 12-15 years but has not caused him problems until recently. He states he has never been able to reduce the hernia. Denies any nausea vomiting diarrhea. He states the last time he had a bowel movement was 4-5 days ago after he gave himself a laxative. He states that it is his normal pattern that he only has a bowel movement after a laxative. He does not know the last time he was able to pass gas. Denies any fever or chills. Chief Complaint: Abdominal Pain Time Seen by MD: 11:06 Primary Care Provider: nicole Wheat Notes: Medications, Allergies Allergies: Coded Allergies: NO KNOWN ALLERGIES (Unverified , 03/18/11) Home Meds Active Scripts Pantoprazole Sodium Sesquihydr (Pantoprazole Sodium) 40 Mg Tab, 40 MG PO DAILY, #60 TAB Prov:DIANNA JEAN BAPTISTE MD 03/09/24 Trazodone Hcl (Trazodone Hcl) 100 Mg Tab, 1 TAB PO QHSP PRN for FOR INSOMNIA, #30 TAB Prov:DIANNA JEAN BAPTISTE MD 03/09/24 Losartan Potassium (Losartan Potassium) 100 Mg Tab, 1 TAB PO DAILY, #60 TAB Prov:DIANNA JEAN BAPTISTE MD 08/15/23 Acetaminophen (Acetaminophen) 500 Mg Tab, 500 MG PO Q6HP PRN for 5 Days, #20 TAB Prov:JOEL SOUSA MD 03/21/23 Reported Medications Pravastatin Sodium (PRAVACHOL TABLET) 20 Mg Tb, 80 MG PO DAILY, TAB 08/12/23 Metoprolol Tartrate (LOPRESSOR TABLET) 50 Mg Tb, 50 MG PO DAILY, TAB 08/12/23 Nitroglycerin (Nitroglycerin) 0.3 Mg Sub 03/19/11 Aspirin (Asa) 81 Mg Ch 03/19/11 Metformin Hydrochloride (Metformin Hcl Er) 500 Mg Tab 03/18/11 Information Source: Patient Mode of Arrival: Ambulatory Past Medical History PAST MEDICAL HISTORY: Depression, DM, High Lipids, HTN Surgical History: Denies all surgeries Family History Family History: Reviewed,noncontributory to illness, Unknown Social History Smoker: Non-Smoker Alcohol: Denies ETOH Use Drugs: Denies Drug Use Lives In: Home Constitutional: denies: chills, diaphoresis, fatigue, fever, malaise, sweats, weakness, others EENTM: denies: blurred vision, double vision, ear bleeding, ear discharge, ear drainage, ear pain, ear ringing, eye pain, eye redness, hearing loss, mouth pain, mouth swelling, nasal discharge, nose bleeding, nose congestion, nose pain, photophobia, tearing, throat pain, throat swelling, voice changes, others Respiratory: denies: cough, hemoptysis, orthopnea, SOB at rest, shortness of breath, SOB with excertion, stridor, wheezing, others Cardiovascular: denies: chest pain, dizzy spells, diaphoresis, Dyspnea on exertion, edema, irregular heart beat, left arm pain, lightheadedness, palpitations, PND, syncope, others Gastrointestinal: reports: abdominal pain; denies: abdomen distended, blood streaked bowels, constipated, diarrhea, dysphagia, difficulty swallowing, hematemesis, melena, nausea, poor appetite, poor fluid intake, rectal bleeding, rectal pain, vomiting, others Genitourinary: denies: burning, dysuria, flank pain, frequency, hematuria, incontinence, penile discharge, penile sore, pain, testicle pain, testicle swelling, urgency, others Neurological: denies: dizziness, fainting, headache, left sided numbness, left sided weakness, numbness, paresthesia, pre-existing deficit, right sided numbness, right sided weakness, seizure, speech problems, tingling, tremors, weakness, others Musculoskeletal: denies: back pain, gout, joint pain, joint swelling, muscle pain, muscle stiffness, neck pain, others Integumetry: denies: bruises, change in color, change in hair/nails, dryness, laceration, lesions, lumps, rash, wounds, others Allergic/Immunocompromised: denies: Difficulty Healing, Frequent Infections, Hives, Itching, others Hematologic/Lymphatic: denies: anemia, blood clots, easy bleeding, easy bruising, swollen glands, others Endocrine: denies: excessive hunger, excessive sweating, excessive thirst, excessive urination, flushing, intolerance to cold, intolerance to heat, unexplained weight gain, unexplained weight loss, others Psychiatric: denies: anxiety, bipolar disorder, depression, hopeless, panic disorder, schizophrenia, sleepless, suicidal, others All Other Systems: Reviewed and Negative Physical Exam General Appearance: No Apparent Distress, Normal HEENT: Normal ENT Inspection, Pharynx Normal, TMs Normal Neck: Full Range of Motion, Non-Tender, Normal, Normal Inspection Respiratory: Chest Non-Tender, Lungs Clear, No Accessory Muscle Use, No Respiratory Distress, Normal Breath Sounds Cardiovascular: No Edema, No JVD, No Murmur, No Gallop, Normal Peripheral Pulses, Regular Rate/Rhythm Breast Exam: Deferred Gastrointestinal: Soft, Other (Palpable hernia to the right ventral wall. Unable to reduce) Genitalia: Deferred Pelvic: Deferred Rectal: Deferred Extremities: No calf tenderness, Normal capillary refill, Normal inspection, Normal range of motion, Non-tender, No pedal edema Musculoskeletal : Apperance: Normal Neurologic: Alert, sales operations specialist II-XII nml as Tested, No Motor Deficits, Normal Affect, Normal Mood, No Sensory Deficits Cerebellar Function: Normal Reflexes: Normal Skin: Dry, Normal Color, Warm Lymphatic: No Adenopathy Was a procedure done? Was a procedure done?: No GI differential Dx Differential Diagnosis: Bowel Obstruction, Constipation, Ischemic Bowel, Impaction Other Differential Diagnosis Incarcerated versus strangulated hernia X-Ray, Labs, Meds, VS Vital Signs Date Time Temp Pulse Resp B/P (MAP) Pulse Ox O2 Delivery O2 Flow Rate FiO2 10/18/24 16:18 Room Air* 0 21 10/18/24 10:52 98.3 70 14 138/70 98 98.3 Lab Test 10/18/24 14:22 10/18/24 12:09 Range/Units Lactic Acid Level 1.5 0.4-2.0 mmol/L White Blood Count 4.9 4.4-10.8 10^3/uL Red Blood Count 4.04 L 4.5-5.90 10^6/uL Hemoglobin 12.5 L 13.5-17.5 g/dL Hematocrit 38.5 L 41.0-53.0 % Mean Corpuscular Volume 95.3 80.0-100.0 fL Mean Corpuscular Hemoglobin 30.9 28.0-32.0 pg Mean Corpuscular Hemoglobin Concent 32.4 32.0-36.0 g/dL Red Cell Distribution Width 13.7 11.8-14.3 % Platelet Count 154 140-450 10^3/uL Mean Platelet Volume 9.7 6.9-10.8 fL Neutrophils (%) (Auto) 77.0 37.0-80.0 % Lymphocytes (%) (Auto) 11.9 10.0-50.0 % Monocytes (%) (Auto) 9.4 0.0-12.0 % Eosinophils (%) (Auto) 1.2 0.0-7.0 % Basophils (%) (Auto) 0.5 0.0-2.0 % Neutrophils # (Auto) 3.8 1.6-8.6 10 ^3/uL Lymphocytes # (Auto) 0.6 0.4-5.4 10 ^3/uL Monocytes # (Auto) 0.5 0-1.3 10 ^3/uL Eosinophils # (Auto) 0.1 0-0.8 10 ^3/uL Basophils # (Auto) 0 0-0.2 10 ^3/uL Nucleated Red Blood Cells 0.1 % Sodium Level 146 H 136-145 mmol/L Potassium Level 4.0 3.5-5.1 mmol/L Chloride Level 109 H 98-107 mmol/L Carbon Dioxide Level 28 20-31 mmol/L Anion Gap 9 5-15 Blood Urea Nitrogen 9 9-23 mg/dL Creatinine 1.24 0.700-1.30 mg/dL Glomerular Filtration Rate Calc 58 >90 mL/min BUN/Creatinine Ratio 7.3 L 10.0-20.0 Serum Glucose 262 H 74-106 mg/dL Calcium Level 9.3 8.7-10.4 mg/dL Total Bilirubin 1.3 H 0.2-1.0 mg/dL Aspartate Amino Transferase (AST) 11 L 13-40 U/L Alanine Aminotransferase (ALT) < 9 7-40 U/L Alkaline Phosphatase 63 46-116 U/L Total Protein 6.1 5.7-8.2 g/dL Albumin 4.3 3.2-4.8 g/dL [address] [address] Ph: [phone] DIAGNOSTIC IMAGING Diagnostic Imaging Report : [id number] Signed PATIENT: EZEQUIEL DORANTES ACCT: [id number] UNIT: [id number] : 1940 LOC: ER ROOM / BED: / AGE / SEX: 84 / M ADM STATUS: REG ER SERVICE 1200 ORDERING PHYSICIAN: CALIN MITCHELL MD PROCEDURE(s): ABPLIV - CT AB PEL WITH IV CON ONLY REASON: ro strangulation of hernia, SBO ORDER NUMBER(s): [id number], ACCESSION NUMBER(s): [id number] Exam: CT CT AB PEL WITH IV CON ONLY History: ro strangulation of hernia, SBO Comparison Study: None TECHNIQUE: Multidetector CT of the abdomen and pelvis with IV contrast. Axial, coronal and sagittal multiplanar reformats were obtained from the axial data set by the technologist. Radiation Dose Information: CT Dose: CTDI volume is 8.05 mGy. Dose-length product is 412.12 mGy*cm FINDINGS: Lung bases are clear. Partially visualized heart is unremarkable. Liver, spleen, pancreas and adrenal glands unremarkable. Status post cholecystectomy. 1.2 cm exophytic right renal lesion which does not measure simple fluid 1.1 cm left anterior renal lesion which does not measure simple fluid. Additional 1.1 cm right renal lesion and Left renal Subcentimeter hypodense lesion are noted which does not measure simple fluid. Mild nonspecific bilateral perinephric fat stranding. No Rye nephrosis bilaterally. Bilateral ureters are unremarkable. Wall thickening of the decompressed urinary bladder out of propulsion with decompressed state. Significantly enlarged prostate measuring 6 x 6.3 x 8.1 cm. 5 mm hyperdensity over the gastroesophageal junction which may represent ingested medication. Mild gastric wall thickening. Small bowel loops unremarkable. Appendix is not definitely visualized. Moderate to large amount of fecal material within the ascending, transverse and descending colon. Distal rectal wall thickening with wall thickening of Proximal ascending colon which may be from decompressed state. No evidence of intraperitoneal free air or free fluid. No evidence of aortic aneurysm or dissection. [id number] atherosclerotic calcification of the aorta and bilateral iliacs. Small fat containing umbilical hernia with small to moderate fat containing supraumbilical hernia. No evidence of acute osseous abnormalities. IMPRESSION: Wall thickening of the urinary bladder which may be from chronic outlet obstruction with cystitis not excluded. Correlation with urinalysis is recom mended. Enlarged prostate. Recommend correlation with PSA. Mild gastric wall thickening which may be due to inadequate distention with mild gastritis not excluded. Wall thickening of the rectum and proximal ascending colon which may be due to inadequate distention with mild Colitis not excluded. Large amount of fecal material within the ascending colon, transverse colon and descending colon. Small amount of fecal material within the remainder of the colon. Hypodense renal lesions which do not measure simple fluid. Renal ultrasound is recommended for further evaluation. Additional findings as above. ATED BY: YOLETTE FISH DO DICTATED DATE/TIME: 10/18/241703 SIGNED BY: YOLETTE FISH DO SIGNED DATE/TIME: 10/18/241703 CC: 84-year-old male presents here with pain over his right ventral hernia. On my examination he does have a hernia however I am unable to reduce it. Patient states over the last several days he has noticed increased pain to the hernia site when he eats and this is new. He states he has had the hernia for 12-15 years and never has not caused him discomfort. At this time a CT abdomen pelvis with IV contrast has been done with no evidence of strangulation. There was evidence of wall thickening of the rectum mild colitis not excluded, large amounts of stool throughout the colon hypodense renal lesions. At this time I do believe he requires a surgical consult for his hernia. CBC with normal limits. CMP with evidence of hypernatremia and hyperbilirubinemia. At this time [facility] for admission. Time of 1ST Reevaluation: 13:17 Reevaluation 1ST: Unchanged Patient Education/Counseling: Diagnosis, Treatment Family Education/Counseling: No Family Present SEPSIS Sepsis Screen Date sepsis recognized/suspect: Oct 18, 2024 Time Sepsis recognized/suspect: 1055 Recent Procedure: No On Antibiotic Therapy: No Respiratory Rate >20: No Heart Rate >90: No Temp<36 C (96.8 F) or >38.3 C: No SBP <90 or MAP <65 mmHG: No New Acute Mental Status Change: No Is the patient on CPAP, BIPAP,: No Physician Orders Ct Ab Pel With Iv Con Only (10/18/24 12:00) Vital Signs Date Time Temp Pulse Resp B/P (MAP) Pulse Ox O2 Delivery O2 Flow Rate FiO2 10/18/24 16:18 Room Air* 0 21 10/18/24 10:52 98.3 70 14 138/70 98 98.3 Laboratory Tests Test 10/18/24 12:09 10/18/24 14:22 White Blood Count 4.9 10^3/uL (4.4-10.8) Lactic Acid Level 1.5 mmol/L (0.4-2.0) Departure 1 Departure Time of Disposition: 17:42 Impression: Primary Impression: Incarcerated hernia Additional Impressions: Hypernatremia Hyperbilirubinemia Renal lesion Constipation Qualified Codes: K59.00 - Constipation, unspecified Disposition: ADMITTED INPATIENT Condition: Fair Critical Care Note Critical Care Time?: No Stability Stability form required: No Heart Score Heart Score: Heart Score Response (Comments) Value History N/A 0 EKG N/A 0 Age N/A 0 Risk Factors N/A 0 Troponin N/A 0 Total 0 I personally scribed for CALIN MITCHELL MD ([email or web address] on 10/18/24 at 11:44. Electronically submitted by Felipe Gonzáles ([employer] [facility]). I personally scribed for CALIN MITCHELL MD ([email or web address]) on 10/18/24 at 12:31. Electronically submitted by Felipe Gonzáles ([email or web address] I personally scribed for CALIN MITCHELL MD ([email or web address]) on 10/18/24 at 13:17. Electronically submitted by Felipe Gonzáles ([email or web address]). I personally scribed for CALIN MITCHELL MD ([email or web address]) on 10/18/24 at 17:19. Electronically submitted by Felipe Gonzáles ([email or web address] CALIN MITCHELL MD Oct 18, 2024 11:44
[2024-10-18 12:50] LABS: Hematocrit 38.5 % (41.0-53.0); Hemoglobin 12.5 g/dL (13.5-17.5); Mean Corpuscular Hemoglobin 30.9 pg (28.0-32.0); Mean Corpuscular Volume 95.3 fL (80.0-100.0); Nucleated Red Blood Cells % 0.1 %
[2024-10-18 12:58] LABS: Albumin 4.3 g/dL (3.2-4.8); Alkaline Phosphatase 63 U/L (46-116); Anion Gap 9 (5-15); BUN/Creatinine Ratio 7.3 (10.0-20.0); Blood Urea Nitrogen 9 mg/dL (9-23); Calcium 9.3 mg/dL (8.7-10.4); Carbon Dioxide 28 mmol/L (20-31); Potassium 4.0 mmol/L (3.5-5.1); Total Protein 6.1 g/dL (5.7-8.2)
[2024-10-18 12:59] LABS: Alanine Aminotransferase < 9 U/L (7-40); Bilirubin, Total 1.3 mg/dL (0.2-1.0); Chloride 109 mmol/L (98-107); Glucose 262 mg/dL (74-106); Sodium 146 mmol/L (136-145)
--- NOTE | 2024-10-18 17:07 | DVH ---
Exam: CT CT AB PEL WITH IV CON ONLY History: ro strangulation of hernia, SBO Comparison Study: None TECHNIQUE: Multidetector CT of the abdomen and pelvis with IV contrast. Axial, coronal and sagittal m ultiplanar reformats were obtained from the axial data set by the technologist. Radiation Dose Information: CT Dose: CTDI volume is 8.05 mGy. Dose-length product is 412.12 mGy*cm FINDINGS: Lung bases are clear. Partially visualized heart is unremarkable. Liver, spleen, pancreas and adrenal glands unremarkable. Status post cholecystectomy. 1.2 cm exophytic right renal lesion which does not measure simple fluid 1.1 cm left anterior renal le mercedez which does not measure simple fluid. Additional 1.1 cm right renal lesion and Left renal Subcent imeter hypodense lesion are noted which does not measure simple fluid. Mild nonspecific bilateral per inephric fat stranding. No Kyle nephrosis bilaterally. Bilateral ureters are unremarkable. Wall thi ckening of the decompressed urinary bladder out of propulsion with decompressed state. Significantly enlarged prostate measuring 6 x 6.3 x 8.1 cm. 5 mm hyperdensity over the gastroesophageal junction which may represent ingested medication. Mild ga stric wall thickening. Small bowel loops unremarkable. Appendix is not definitely visualized. Modera te to large amount of fecal material within the ascending, transverse and descending colon. Distal re ctal wall thickening with wall thickening of Proximal ascending colon which may be from decompressed state. No evidence of intraperitoneal free air or free fluid. No evidence of aortic aneurysm or dissection. [id number] atherosclerotic calcification of the aorta and bilateral iliacs. Small fat containing umbilical hernia with small to moderate fat containing supraumbilical hernia. No evidence of acute osseous abnormalities. IMPRESSION: Wall thickening of the urinary bladder which may be from chronic outlet obstruction with cystitis not excluded. Correlation with urinalysis is recommended. Enlarged prostate. Recommend correlation with PSA. Mild gastric wall thickening which may be due to inadequate distention with mild gastritis not exclud ed. Wall thickening of the rectum and proximal ascending colon which may be due to inadequate distention with mild Colitis not excluded. Large amount of fecal material within the ascending colon, transverse colon and descending colon. Sma ll amount of fecal material within the remainder of the colon. Hypodense renal lesions which do not measure simple fluid. Renal ultrasound is recommended for furthe r evaluation. Additional findings as above.
[2024-10-18] MEDS: IOHEXOL 300 MG/ML 100ML BOTTLE IJ ONE (18:19)
[2024-10-18] MEDS ORDERED: HYDR-4902 PO (21:39)
--- NOTE | 2024-10-18 21:52 | DVHINCON2 ---
FRANCINE JOHNSON BLOW TORCH OPERATOR 10/18/242151: Date of service: Oct 18, 2024 Referring Physician ER physician Dr Carlton Reason for Consultation Medical management History of Present Illness 84-year-old male presents with complaints of abdominal pain at the hernia site. Patient's has had hernia for 12-15 years. At this time patient's states pain has a improved. He has been in the emergency department for 10 hours and has n ot received any analgesia. During the emergency department evaluation CBC is unremarkable. Na 146, K4.0, BUN nine, creatinine 1.24, GFR 58. LA 1.5. AST 11, ALT nine total bilirubin 1.3.. CT of the abdomen and pelvis with contrast impression reads wall thickening of the urinary bladder which may be chronic outlet obstruction or cystitis not excluded. Correlate with UA. Enlarged prostate. Mild gastric wall thickening may be due to inadequate distention with mild gastritis not excluded. Wall thickening of the rectum proximal ascending colon may be due to inadequate distention with a mild colitis not excluded large amount of fecal material within the ascending colon transverse colon descending colon. At this time patient denies any fevers, chills, shortness of breath, chest pain, palpitations, nausea, vomiting, hematemesis, hematochezia, melena, dysuria pelvic pain. Family History: Hypertension G8 MOTHER Allergies: Coded Allergies: NO KNOWN ALLERGIES (Unverified , 03/18/11) Home Meds Active Scripts Polyethylene Glycol 3350 (Miralax Mix-in Maud) 17 Gm Pow, 17 GM PO DAILY for 14 Days, #14 POW Prov:FRANCINE JOHNSON BLOW TORCH OPERATOR 10/19/24 Hydrocodone-Acetaminophen (Hydrocodone Bitartrate/AC 5-325 mg) 1 Tab Tab, 1 TAB PO Q8HP PRN for 3 Days, #9 TAB Prov:MICHELLE MAYS MD 10/18/24 Pantoprazole Sodium Sesquihydr (Pantoprazole Sodium) 40 Mg Tab, 40 MG PO DAILY, #60 TAB Prov:DIANNA JEAN BAPTISTE MD 03/09/24 Trazodone Hcl (Trazodone Hcl) 100 Mg Tab, 1 TAB PO QHSP PRN for FOR INSOMNIA, #30 TAB Prov:DIANNA JEAN BAPTISTE MD 03/09/24 Losartan Potassium (Losartan Potassium) 100 Mg Tab, 1 TAB PO DAILY, #60 TAB Prov:DIANNA JEAN BAPTISTE MD 08/15/23 Acetaminophen (Acetaminophen) 500 Mg Tab, 500 MG PO Q6HP PRN for 5 Days, #20 TAB Prov:JOEL SOUSA MD 03/21/23 Reported Medications Pravastatin Sodium (PRAVACHOL TABLET) 20 Mg Tb, 80 MG PO DAILY, TAB 08/12/23 Metoprolol Tartrate (LOPRESSOR TABLET) 50 Mg Tb, 50 MG PO DAILY, TAB 08/12/23 Nitroglycerin (Nitroglycerin) 0.3 Mg Sub 03/19/11 Aspirin (Asa) 81 Mg Ch 03/19/11 Metformin Hydrochloride (Metformin Hcl Er) 500 Mg Tab 03/18/11 Review of Systems 10 systems reviewed and negative except as per HPI Vital Signs Vital Signs Date Time Temp Pulse Resp B/P (MAP) Pulse Ox O2 Delivery O2 Flow Rate FiO2 10/18/24 18:53 212/104 10/18/24 18:19 97.3 59 16 98 97.3 10/18/24 16:18 Room Air* 0 21 Physical Exam GENERAL: Patient appearing stated age, in no acute distress. Nontoxic appearing. HEENT: Pupils equal and reactive to light and accommodation. Extraocular muscles intact. Mucous membranes moist. Conjunctivae pink. Anicteric sclerae. LUNGS: Bilateral air entry. No wheezes, rhonchi or rales. HEART: Regular rate and rhythm. Normal S1 and S2. ABDOMEN: BS normoactive, soft, nontender, and nondistended. No CVA tenderness. Palpable bulge noted 11oclock. above the umbilicus. non reducible. EXTREMITIES: No clubbing, cyanosis, edema. No calf tenderness. Pedal pulses 2+. NEUROLOGICAL: The patient is alert and oriented times 3. CN II-XII intact. No focal deficits on gross sensory or motor examination. Labs/Diagnostic Data Labs Test 10/18/24 14:22 10/18/24 12:09 Range/Units Lactic Acid Level 1.5 0.4-2.0 mmol/L White Blood Count 4.9 4.4-10.8 10^3/uL Red Blood Count 4.04 L 4.5-5.90 10^6/uL Hemoglobin 12.5 L 13.5-17.5 g/dL Hematocrit 38.5 L 41.0-53.0 % Mean Corpuscular Volume 95.3 80.0-100.0 fL Mean Corpuscular Hemoglobin 30.9 28.0-32.0 pg Mean Corpuscular Hemoglobin Concent 32.4 32.0-36.0 g/dL Red Cell Distribution Width 13.7 11.8-14.3 % Platelet Count 154 140-450 10^3/uL Mean Platelet Volume 9.7 6.9-10.8 fL Neutrophils (%) (Auto) 77.0 37.0-80.0 % Lymphocytes (%) (Auto) 11.9 10.0-50.0 % Monocytes (%) (Auto) 9.4 0.0-12.0 % Eosinophils (%) (Auto) 1.2 0.0-7.0 % Basophils (%) (Auto) 0.5 0.0-2.0 % Neutrophils # (Auto) 3.8 1.6-8.6 10 ^3/uL Lymphocytes # (Auto) 0.6 0.4-5.4 10 ^3/uL Monocytes # (Auto) 0.5 0-1.3 10 ^3/uL Eosinophils # (Auto) 0.1 0-0.8 10 ^3/uL Basophils # (Auto) 0 0-0.2 10 ^3/uL Nucleated Red Blood Cells 0.1 % Sodium Level 146 H 136-145 mmol/L Potassium Level 4.0 3.5-5.1 mmol/L Chloride Level 109 H 98-107 mmol/L Carbon Dioxide Level 28 20-31 mmol/L Anion Gap 9 5-15 Blood Urea Nitrogen 9 9-23 mg/dL Creatinine 1.24 0.700-1.30 mg/dL Glomerular Filtration Rate Calc 58 >90 mL/min BUN/Creatinine Ratio 7.3 L 10.0-20.0 Serum Glucose 262 H 74-106 mg/dL Calcium Level 9.3 8.7-10.4 mg/dL Total Bilirubin 1.3 H 0.2-1.0 mg/dL Aspartate Amino Transferase (AST) 11 L 13-40 U/L Alanine Aminotransferase (ALT) < 9 7-40 U/L Alkaline Phosphatase 63 46-116 U/L Total Protein 6.1 5.7-8.2 g/dL Albumin 4.3 3.2-4.8 g/dL Assessment Chronic ventral wall hernia Constipation Hypertension At this time patient was seen and evaluated in ER bed 17. Patient's chart was reviewed in its entirety including lab work, imaging, physical assessment, and current ER treatment. During the emergency department evaluation CBC is unremarkable. Na 146, K4.0, BUN nine, creatinine 1.24, GFR 58. LA 1.5. AST 11, ALT [address] of the abdomen and pelvis with contrast impression reads wall thickening of the urinary bladder which may be chronic outlet obstruction or cystitis not excluded. Correlate with UA. Enlarged prostate. Mild gastric wall thickening may be due to inadequate distention with mild gastritis not excluded. Wall thickening of the rectum proximal ascending colon may be due to inadequate distention with a mild colitis not excluded large amount of fecal material within the ascending colon transverse colon descending colon. Patient's primary complaint as at the hernia site. Patient is noted to be hypertensive with a blood pressure 212/104. However considering that the patient has been in the emergency department over 10 hours, he has not taken his blood pressure medications. After being treated for hypertension patient's vital signs have improved BP 134/79, HR 68, RR 20 BPM with oxygen saturation 96% on room air. On physical examination, patient does have a palpable bulge above the umbilicus right of the midline. Non-tender to palpation abdomen soft. Patient is non-toxic appearing. Plan/Recommendation Considering there is no need for emergent surgical intervention, there is no small bowel obstruction, no signs of bowel strangulation, and the chronic nature of the hernia 12 years plus. The patient will be discharged home with an outpatient follow up with the general surgeon. Patient was provided with prescription for nine tablets of [place] for pain and MiraLAX for constipation. Patient was also instructed to increase his water intake and walk as tolerated. Patient was also instructed to take his antihypertensive medication's as ordered when he goes home. Patient was also advised to flower buncher or picker prescriptions from the pharmacy on the following day. Patient verbalized understanding these instructions O casework manager Cat has been consulted to establish home safety evaluation and outpatient appointment with general surgeon in the next few days. Patient was provided with strict ER precautions including but not limited to dizziness, syncope, shortness of breath, chest, pain, nausea, vomiting, firm, and distended, abdomen. If any of these occur, please return to the nearest emergency department for further evaluation and treatment. Plan discussed with: Patient GANAPAVARAPU,DIANNA MD 10/19/24 1814: Family History: Hypertension G8 MOTHER Allergies: Coded Allergies: NO KNOWN ALLERGIES (Unverified , 03/18/11) Home Meds Active Scripts Polyethylene Glycol 3350 (Miralax Mix-in Maud) 17 Gm Pow, 17 GM PO DAILY for 14 D ays, #14 POW Prov:FRANCINE JOHNSON NP 10/19/24 Hydrocodone-Acetaminophen (Hydrocodone Bitartrate/AC 5-325 mg) 1 Tab Tab, 1 TAB PO Q8HP PRN for 3 Days, #9 TAB Prov:MICHELLE MAYS MD 10/18/24 Pantoprazole Sodium Sesquihydr (Pantoprazole Sodium) 40 Mg Tab, 40 MG PO DAILY, #60 TAB Prov:DIANNA JEAN BAPTISTE MD 03/09/24 Trazodone Hcl (Trazodone Hcl) 100 Mg Tab, 1 TAB PO QHSP PRN for FOR INSOMNIA, #30 TAB Prov:DIANNA JEAN BAPTISTE MD 03/09/24 Losartan Potassium (Losartan Potassium) 100 Mg Tab, 1 TAB PO DAILY, #60 TAB Prov:DIANNA JEAN BAPTISTE MD 08/15/23 Acetaminophen (Acetaminophen) 500 Mg Tab, 500 MG PO Q6HP PRN for 5 Days, #20 TAB Prov:JOEL SOUSA MD 03/21/23 Reported Medications Pravastatin Sodium (PRAVACHOL TABLET) 20 Mg Tb, 80 MG PO DAILY, TAB 08/12/23 Metoprolol Tartrate (LOPRESSOR TABLET) 50 Mg Tb, 50 MG PO DAILY, TAB 08/12/23 Nitroglycerin (Nitroglycerin) 0.3 Mg Sub 03/19/11 Aspirin (Asa) 81 Mg Ch 03/19/11 Metformin Hydrochloride (Metformin Hcl Er) 500 Mg Tab 03/18/11 Additional Comments Additional Comments Additional Comments Patient's chart is reviewed and discussed with the nurse practitioner. The patient is seen and evaluated by nurse practitioner. I agree with his evaluation, documentation, assessment and care plan as outlined. FRANCINE JOHNSON NP Oct 18, 2024 21:52 DIANNA JEAN BAPTISTE MD Oct 19, 2024 18:14
[2024-10-18 21:53] VITALS: BP 134/79; PULSE 68; RESP 20; TEMP 98.1; O2SAT 96
[2024-10-19] MEDS ORDERED: POLY17PO5 PO (01:00)
== END 2024-10-18 22:48 | disposition home or self-care (01) ==
LOC: ER 10:51
DX: K43.6 Other and unspecified ventral hernia with obstruction, without gangrene (principal); E87.0 Hyperosmolality and hypernatremia; E80.6 Other disorders of bilirubin metabolism; N28.9 Disorder of kidney and ureter, unspecified; K59.00 Constipation, unspecified; I10 Essential (primary) hypertension; E11.9 Type 2 diabetes mellitus without complications; F32.A Depression, unspecified; Z79.899 Other long term (current) drug therapy
CPT/HCPCS: 36415; 74177; 80053; 83605; 85025; 99285; Q9967

== ENCOUNTER 2024-11-21 15:39 | Inpatient (IN) | payer OTHER ==
[~2024-11-21] VITALS: Ht 167.6 cm; Wt 65.3 kg
[~2024-11-21 15:39] MED LIST changes: +HYDR-4902 PO
--- NOTE | 2024-11-21 16:08 | ECG ---
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
--- NOTE | 2024-11-21 16:12 | ED.PDOC ---
HPI Comments This is an 84 year-old male, with a Hx of aortic aneurism, who presents to the ED via EMS with a chief complaint of chest tightness events most days as of X3 months ago. Per EMS, patient was seen at [facility] today where he was told to come to the ED for further evaluation of symptoms, given Hx of aortic aneurism. Per EMS, patients blood pressure read 180/88 en route. Patient reports last CT was X6 months ago and observed an aneurism size of 4.1cm. Patient has no further complaints at this time and otherwise denies chest pain, N/V/D, palpitations, weakness, or headache. Patient was in a asymptomatic hypertensive emergent state at arrival with a blood pressure of 240/117. Chief Complaint: Chest Pain Time Seen by MD: 15:53 Primary Care Provider: nicole Reviewed Notes: Nurses Notes, Medications, Allergies Allergies: Coded Allergies: NO KNOWN ALLERGIES (Unverified , 03/18/11) Home Meds Active Scripts Hydrocodone-Acetaminophen (Hydrocodone Bitartrate/AC 5-325 mg) 1 Tab Tab, 1 TAB PO Q8HP PRN for 3 Days, #9 TAB Prov:MICHELLE MAYS MD 10/18/24 Pantoprazole Sodium Sesquihydr (Pantoprazole Sodium) 40 Mg Tab, 40 MG PO DAILY, #60 TAB Prov:DIANNA JEAN BAPTISTE MD 03/09/24 Trazodone Hcl (Trazodone Hcl) 100 Mg Tab, 1 TAB PO QHSP PRN for FOR INSOMNIA, #30 TAB Prov:DIANNA JEAN BAPTISTE MD 03/09/24 Losartan Potassium (Losartan Potassium) 100 Mg Tab, 1 TAB PO DAILY, #60 TAB Prov:DIANNA JEAN BAPTISTE MD 08/15/23 Acetaminophen (Acetaminophen) 500 Mg Tab, 500 MG PO Q6HP PRN for 5 Days, #20 TAB Prov:JOEL SOUSA MD 03/21/23 Reported Medications Pravastatin Sodium (PRAVACHOL TABLET) 20 Mg Tb, 80 MG PO DAILY, TAB 08/12/23 Metoprolol Tartrate (LOPRESSOR TABLET) 50 Mg Tb, 50 MG PO DAILY, TAB 08/12/23 Nitroglycerin (Nitroglycerin) 0.3 Mg Sub 03/19/11 Aspirin (Asa) 81 Mg Ch 03/19/11 Metformin Hydrochloride (Metformin Hcl Er) 500 Mg Tab 03/18/11 Information Source: Patient, Emergency Med Personnel Mode of Arrival: EMS Severity: Moderate Timing: Hours, Months Duration: Since onset Onset: At Rest, With Light Exertion, With Heavy Exertion Cardiac Risk Factors: HTN History of: Other (Aortic aneurysm) Associated Signs and Symptoms: Other (chest tightness ) Past Medical History PAST MEDICAL HISTORY: Depression, DM, High Lipids, HTN Past Medical History (Other): aortic aneurism Surgical History: Denies all surgeries Family History Family History: Reviewed,noncontributory to illness, Unknown Social History Smoker: Non-Smoker Alcohol: Denies ETOH Use Drugs: Denies Drug Use Lives In: Home Constitutional: denies: chills, diaphoresis, fatigue, fever, malaise, sweats, weakness, others EENTM: denies: blurred vision, double vision, ear bleeding, ear discharge, ear drainage, ear pain, ear ringing, eye pain, eye redness, hearing loss, mouth p ain, mouth swelling, nasal discharge, nose bleeding, nose congestion, nose pain, photophobia, tearing, throat pain, throat swelling, voice changes, others Respiratory: denies: cough, hemoptysis, orthopnea, SOB at rest, shortness of br eath, SOB with excertion, stridor, wheezing, others Cardiovascular: reports: chest pain, others (chest tightness ); denies: dizzy spells, diaphoresis, Dyspnea on exertion, edema, irregular heart beat, left arm pain, lightheadedness, palpitations, PND, syncope Gastrointestinal: denies: abdomen distended, abdominal pain, blood streaked bowels, constipated, diarrhea, dysphagia, difficulty swallowing, hematemesis, melena, nausea, poor appetite, poor fluid intake, rectal bleeding, rectal pain, vomiting, others Genitourinary: denies: burning, dysuria, flank pain, frequency, hematuria, incontinence, penile discharge, penile sore, pain, testicle pain, testicle swelling, urgency, others Neurological: denies: dizziness, fainting, headache, left sided numbness, left sided weakness, numbness, paresthesia, pre-existing deficit, right sided numbness, right sided weakness, seizure, speech problems, tingling, tremors, weakness, others Musculoskeletal: denies: back pain, gout, joint pain, joint swelling, muscle pain, muscle stiffness, neck pain, others Integumetry: denies: bruises, change in color, change in hair/nails, dryness, laceration, lesions, lumps, rash, wounds, others Allergic/Immunocompromised: denies: Difficulty Healing, Frequent Infections, Hives, Itching, others Hematologic/Lymphatic: denies: anemia, blood clots, easy bleeding, easy bruising, swollen glands, others Endocrine: denies: excessive hunger, excessive sweating, excessive thirst, excessive urination, flushing, intolerance to cold, intolerance to heat, unexplained weight gain, unexplained weight loss, others Psychiatric: denies: anxiety, bipolar disorder, depression, hopeless, panic disorder, schizophrenia, sleepless, suicidal, others All Other Systems: Reviewed and Negative Physical Exam General Appearance: Mild Distress (Moderate distress due to chest pain concerns and anxiety related to the chest pain concerns. Patient declined the need for any pain medication as he took a nitro tablet earlier.), Normal HEENT: Normal ENT Inspection, Pharynx Normal, TMs Normal Neck: Full Range of Motion, Non-Tender, Normal, Normal Inspection Respiratory: Chest Non-Tender, Lungs Clear, No Accessory Muscle Use, No Respiratory Distress, Normal Breath Sounds Cardiovascular: No Edema, No JVD, No Murmur, No Gallop, Normal Peripheral Pulses, Regular Rate/Rhythm Breast Exam: Deferred Gastrointestinal: No Organomegaly, Non Tender, No Pulsatile Mass, Normal Bowel Sounds, Soft Genitalia: Deferred Pelvic: Deferred Rectal: Deferred Extremities: No calf tenderness, Normal capillary refill, Normal inspection, Normal range of motion, Non-tender, No pedal edema Neurologic: Alert Cerebellar Function: NOT DONE Reflexes: NOT DONE Skin: Dry, Normal Color, Warm Lymphatic: No Adenopathy Was a procedure done? Was a procedure done?: No CP Differential Dx Differential Diagnosis: Angina, Anxiety / Panic Attack, Other (Aortic aneurysm, hypertensive emergency) Differential Diagnosis: CHF, HTN Essential Differential Diagnosis: Angina, Chest Wall Pain X-Ray, Labs, Meds, VS Vital Signs Date Time Temp Pulse Resp B/P (MAP) Pulse Ox O2 Delivery O2 Flow Rate FiO2 11/21/24 19:01 58 16 148/87 (107) 99 11/21/24 18:59 147/89 11/21/24 18:30 61 11/21/24 17:59 234/114 11/21/24 17:54 63 16 234/114 (154) 100 240/117 (158) 11/21/24 16:36 56 11/21/24 15:55 98.9 86 18 180/88 100 98.9 11/21/24 15:40 59 Lab Test 11/21/24 19:50 11/21/24 17:09 11/21/24 16:06 Range/Units Urine Color Light-yellow Yellow Urine Clarity Clear Clear Urine pH 6.5 5.0-9.0 Urine Specific [place] 1.036 H 1.001-1.035 Urine Protein Negative Negative Urine Ketones Negative Negative Urine Blood Negative Negative /uL Urine Nitrite Negative Negative Urine Bilirubin Negative Negative Urine Urobilinogen 2 H Negative mg/dL Urine Leukocyte Esterase Negative Negative /uL Urine RBC None seen 0 - 3 /hpf Urine Microscopic WBC < 1 0-3 /HPF Urine Squamous Epithelial Cells None seen <5 /hpf Urine Bacteria None seen None Seen /hpf Urine Glucose Normal Normal mg/dL Troponin I High Sensitivity 4 3 L </=54 ng/L White Blood Count 4.5 4.4-10.8 10^3/uL Red Blood Count 3.74 L 4.5-5.90 10^6/uL Hemoglobin 11.6 L 13.5-17.5 g/dL Hematocrit 35.1 L 41.0-53.0 % Mean Corpuscular Volume 93.9 80.0-100.0 fL Mean Corpuscular Hemoglobin 30.9 28.0-32.0 pg Mean Corpuscular Hemoglobin Concent 32.9 32.0-36.0 g/dL Red Cell Distribution Width 13.2 11.8-14.3 % Platelet Count 147 140-450 10^3/uL Mean Platelet Volume 9.4 6.9-10.8 fL Neutrophils (%) (Auto) 68.8 37.0-80.0 % Lymphocytes (%) (Auto) 18.2 10.0-50.0 % Monocytes (%) (Auto) 10.4 0.0-12.0 % Eosinophils (%) (Auto) 1.9 0.0-7.0 % Basophils (%) (Auto) 0.7 0.0-2.0 % Neutrophils # (Auto) 3.1 1.6-8.6 10 ^3/uL Lymphocytes # (Auto) 0.8 0.4-5.4 10 ^3/uL Monocytes # (Auto) 0.5 0-1.3 10 ^3/uL Eosinophils # (Auto) 0.1 0-0.8 10 ^3/uL Basophils # (Auto) 0 0-0.2 10 ^3/uL Nucleated Red Blood Cells 0.1 % Sodium Level 140 136-145 mmol/L Potassium Level 3.6 3.5-5.1 mmol/L Chloride Level 106 98-107 mmol/L Carbon Dioxide Level 27 20-31 mmol/L Anion Gap 7 5-15 Blood Urea Nitrogen 9 9-23 mg/dL Creatinine 1.05 0.700-1.30 mg/dL Glomerular Filtration Rate Calc 71 >90 mL/min BUN/Creatinine Ratio 8.6 L 10.0-20.0 Serum Glucose 170 H 74-106 mg/dL Calcium Level 8.8 8.7-10.4 mg/dL Total Bilirubin 1.4 H 0.2-1.0 mg/dL Aspartate Amino Transferase (AST) 9 L 13-40 U/L Alanine Aminotransferase (ALT) 9 7-40 U/L Alkaline Phosphatase 56 46-116 U/L C-Reactive Protein High Sensitivity 0.03 <1.0 mg/dL B-Type Natriuretic Peptide 74.96 0-100 pg/mL Total Protein 5.9 5.7-8.2 g/dL Albumin 3.8 3.2-4.8 g/dL Lipase 47 12-53 U/L Current Medications Medications (Trade) Dose Ordered Sig/Tamika Route Start Time Stop Time Status Last Admin Clonidine HCl (Catapres Tablet) 0.2 mg ONCE ONCE PO 11/21/24 18:00 11/21/24 18:01 DC 11/21/24 17:[address] [address] Ph: [phone] DIAGNOSTIC IMAGING Diagnostic Imaging Report : [id number] Signed PATIENT: EZEQUIEL DORANTES ACCT: [id number] UNIT: [id number] : 1940 LOC: ER ROOM / BED: / AGE / SEX: 84 / M ADM STATUS: REG ER SERVICE [id number] ORDERING PHYSICIAN: CHRIS FELIX PAC PROCEDURE(s): CAPIV - CT CHEST/AB/PL W CON- IV ONLY REASON: Chest pain/history of aortic aneurysm ORDER NUMBER(s): [id number], ACCESSION NUMBER(s): [id number] COMPUTERIZED TOMOGRAPHY CHEST/ABDOMEN/PELVIS WITH INTRAVENOUS CONTRAST CLINICAL HISTORY: Chest pain/history of aortic aneurysm COMPARISON: CT CT AB PEL WITH IV CON ONLY on DOS: 10/18/24, CT ANGIO CHEST on DOS: 09/19/24, CT CT ANGIO CHEST CONTRAST on DOS: 03/09/24, XY CHEST PORTABLE on DOS: 03/09/24, CT ANGIO CHEST ABD on DOS: 11/14/23 TECHNIQUE: After the administration of intravenous contrast, axial CT images of the chest, abdomen and pelvis were obtained. 2-D coronal and sagittal reformatted images were provided. Radiation optimization: All CT scans at this facility use at least one of these dose optimization techniques: Automated exposure control mA and/or kV adjustment per patient size (includes targeted exams where dose is matched to clinical indication) or iterative reconstruction. CONTRAST ADMINISTERED: 99 mL omnipaque 350, intravenously. RADIATION DOSE: CTDI: 12 mGy DLP: 832 mGy-cm FINDINGS: CHEST: Respiratory motion artifact degrades evaluation of the lungs. No bronchiectasis or honeycombing is identified. There is no significant pulmonary nodule or mass within the limitations of motion artifact. There are several tiny calcified granulomata in the left lower lobe. There are numerous calcified mediastinal lymph nodes. There is no pleural effusion. There is no pneumothorax. There is no pulmonary arterial filling defect as far as the subsegmental level to suggest pulmonary embolism. The visualized thyroid gland is grossly unremarkable. Opacification of the thoracic aorta is suboptimal due to bolus timing. The ascending aorta is mildly aneurysmal at 4.4 cm. The proximal descending aorta measures approximately 4.3 cm. The heart is at the upper limits of normal for size. There is no pericardial effusion. There is extensive coronary artery c alcification. ABDOMEN/PELVIS: There is no abdominal aortic aneurysm. There is extensive aortic atherosclerosis in the abdomen. The spleen is not enlarged. There are several tiny calcified granulomata within the spleen. The liver is within normal limits for size. The portal vein is patent. The gallbladder is surgically absent. The pancreas is within normal limits. The adrenal glands are normal. The kidneys enhance symmetrically. No solid renal mass is identified. There is no hydronephrosis of either kidney. There is a complex umbilical/periumbilical fat containing hernia. No visceral arterial aneurysm is identified. The urinary bladder is significantly thick-walled. The prostate is massively enlarged. The colonic stool burden is small to moderate. The appendix is normal. There is no pathologic distention of the small bowel. No free fluid is identified in the abdomen or pelvis. There is no pathologic lymphadenopathy identified by size criteria. No acute osseous abnormality is identified. IMPRESSION: No evidence of pulmonary embolism as far as the subsegmental level. Mildly aneurysmal thoracic aorta measuring 4.4 cm in the ascending portion and 4.3 cm in the descending portion. Opacification of the thoracic aorta was insufficient to evaluate for dissection. Massively enlarged prostate. Significantly thick-walled urinary bladder. This may be secondary to chronic outlet obstruction although cystitis is also a consideration. Correlate clinically and with urinalysis. Normal appendix Complex, fat containing umbilical/periumbilical hernia. X-Ray, Labs, Meds, VS Comment All studies performed the ED were evaluated by me personally. Serum laboratories revealed a mild anemic state and urinalysis was unremarkable for any urinary tract infections. EKG showed a sinus rhythm with a rate of 56. Abnormal R-wave progression was noted. MO interval of 199 and QT interval of 433. . CT of the chest and abdomen with contrast revealed no evidence of pulmonary embolism. Mild aneurysmal thoracic aorta measuring 4.4 cm in the ascending portion and 4.3 cm of the descending portion. Massively enlarged prostate. Significantly thick walled urinary bladder. Normal appendix. Complex fat containing umbilical periumbilical hernia. Patient's blood pressure was reduced to an acceptable zone at time of this note, but patient maintain a bradycardic state throughout his stay at the ED.. Patient is a poor historian and may be suffering from some mild dementia. Due to the hypertensive emergent state coupled with the aortic aneurysm and bradycardic concerns, patient will be admitted for cardiac evaluation as well as establishment of proper blood pressure medication to manage what is currently uncontrolled hypertension. This patient is a [employer] patient and therefore, I spoke with provider James. Advised him on initial patient presentation as well as laboratories studies, EKG and response to medication. Provider James agreed to accept the patient as an admission. He requested updated vital signs and he will come to the facility for evaluation. Images Reviewed?: Images reviewed and evaluated by me Time of 1ST Reevaluation: 21:08 Reevaluation 1ST: Improved Consultation: PCP, Cardiology Patient Education/Counseling: Diagnosis, Treatment Family Education/Counseling: Diagnosis, Treatment, No Family Present Medical Screening: No EMC Exist At This Time SEPSIS Sepsis Screen Recent Procedure: No On Antibiotic Therapy: No Respiratory Rate >20: No Heart Rate >90: No Temp<36 C (96.8 F) or >38.3 C: No SBP <90 or MAP <65 mmHG: No New Acute Mental Status Change: No Is the patient on CPAP, BIPAP,: No Physician Orders Heplock Iv (11/21/24 ) Ct Chest/Ab/Pl W Con- Iv Only (11/21/24 15:53) Vital Signs Date Time Temp Pulse Resp B/P (MAP) Pulse Ox O2 Delivery O2 Flow Rate FiO2 11/21/24 19:01 58 16 148/87 (107) 99 11/21/24 18:59 147/89 11/21/24 18:30 61 11/21/24 17:59 234/114 11/21/24 17:54 63 16 234/114 (154) 100 240/117 (158) 11/21/24 16:36 56 11/21/24 15:55 98.9 86 18 180/88 100 98.9 11/21/24 15:40 59 Laboratory Tests Test 11/21/24 16:06 White Blood Count 4.5 10^3/uL (4.4-10.8) Medications Medications Dose Ordered Sig/Tamika Route Start Time Stop Time Status Last Admin Dose Admin Clonidine HCl 0.2 mg ONCE ONCE PO 11/21/24 18:00 11/21/24 18:01 DC 11/21/24 17:59 Departure 1 Departure Time of Disposition: 21:08 Impression: Primary Impression: Chest pain Additional Impressions: Hypertensive urgency Aortic aneurysm BPH (benign prostatic hyperplasia) Disposition: 09 ADMITTED INPATIENT Condition: Stable Discharged With: Self Critical Care Note Critical Care Time?: No Stability Stability form required: No Heart Score Heart Score: Heart Score Response (Comments) Value History Slightly Suspicious 0 EKG N/A 0 Age >65 2 Risk Factors 1 or 2 risk factors 1 Troponin N/A 0 Total 3 I personally scribed for CHRIS FELIX PAC ([employer]) on 11/21/24 at 16:12. Electronically submitted by Tracy Correa ([employer]). I personally scribed for CHRIS FELIX PAC ([employer]) on 11/21/24 at 18:18. Electronically submitted by Tracy Correa ([email or web address]). CHRIS FELIX PAC Nov 21, 2024 16:12
[2024-11-21 16:23] LABS: Hematocrit 35.1 % (41.0-53.0); Hemoglobin 11.6 g/dL (13.5-17.5); Mean Corpuscular Hemoglobin 30.9 pg (28.0-32.0); Mean Corpuscular Volume 93.9 fL (80.0-100.0); Nucleated Red Blood Cells % 0.1 %
[2024-11-21 16:39] LABS: Alkaline Phosphatase 56 U/L (46-116); Calcium 8.8 mg/dL (8.7-10.4)
[2024-11-21 16:40] LABS: Albumin 3.8 g/dL (3.2-4.8); Anion Gap 7 (5-15); BUN/Creatinine Ratio 8.6 (10.0-20.0); Blood Urea Nitrogen 9 mg/dL (9-23); Carbon Dioxide 27 mmol/L (20-31); Chloride 106 mmol/L (98-107); Lipase 47 U/L (12-53); Potassium 3.6 mmol/L (3.5-5.1); Sodium 140 mmol/L (136-145); Total Protein 5.9 g/dL (5.7-8.2)
[2024-11-21 16:41] LABS: Alanine Aminotransferase 9 U/L (7-40); Bilirubin, Total 1.4 mg/dL (0.2-1.0); Glucose 170 mg/dL (74-106)
[2024-11-21] MEDS: IOHEXOL 350 MG/ML 100ML IJ ONE (18:00)
--- NOTE | 2024-11-21 18:15 | DVH ---
COMPUTERIZED TOMOGRAPHY CHEST/ABDOMEN/PELVIS WITH INTRAVENOUS CONTRAST CLINICAL HISTORY: Chest pain/history of aortic aneurysm COMPARISON: CT CT AB PEL WITH IV CON ONLY on DOS: 10/18/24, CT ANGIO CHEST on DOS: 09/19/24, CT CT KUN O CHEST CONTRAST on DOS: 03/09/24, XY CHEST PORTABLE on DOS: 03/09/24, CT ANGIO CHEST ABD on DOS: TECHNIQUE: After the administration of intravenous contrast, axial CT images of the chest, abdomen an d pelvis were obtained. 2-D coronal and sagittal reformatted images were provided. Radiation optimiza tion: All CT scans at this facility use at least one of these dose optimization techniques: Automated exposure control mA and/or kV adjustment per patient size (includes targeted exams where dose is mat ched to clinical indication) or iterative reconstruction. CONTRAST ADMINISTERED: 99 mL omnipaque 350, intravenously. RADIATION DOSE: CTDI: 12 mGy DLP: 832 mGy-cm FINDINGS: CHEST: Respiratory motion artifact degrades evaluation of the lungs. No bronchiectasis or honeycombing is id entified. There is no significant pulmonary nodule or mass within the limitations of motion artifact . There are several tiny calcified granulomata in the left lower lobe. There are numerous calcified m ediastinal lymph nodes. There is no pleural effusion. There is no pneumothorax. There is no pulmonar y arterial filling defect as far as the subsegmental level to suggest pulmonary embolism. The visuali zed thyroid gland is grossly unremarkable. Opacification of the thoracic aorta is suboptimal due to b olus timing. The ascending aorta is mildly aneurysmal at 4.4 cm. The proximal descending aorta measur es approximately 4.3 cm. The heart is at the upper limits of normal for size. There is no pericardia l effusion. There is extensive coronary artery calcification. ABDOMEN/PELVIS: There is no abdominal aortic aneurysm. There is extensive aortic atherosclerosis in the abdomen. The spleen is not enlarged. There are several tiny calcified granulomata within the spleen. The liver is within normal limits for size. The portal vein is patent. The gallbladder is surgically absent. Th e pancreas is within normal limits. The adrenal glands are normal. The kidneys enhance symmetrically . No solid renal mass is identified. There is no hydronephrosis of either kidney. There is a complex umbilical/periumbilical fat containing hernia. No visceral arterial aneurysm is identified. The urina ry bladder is significantly thick-walled. The prostate is massively enlarged. The colonic stool haven en is small to moderate. The appendix is normal. There is no pathologic distention of the small bowel . No free fluid is identified in the abdomen or pelvis. There is no pathologic lymphadenopathy iden tified by size criteria. No acute osseous abnormality is identified. IMPRESSION: No evidence of pulmonary embolism as far as the subsegmental level. Mildly aneurysmal thoracic aorta measuring 4.4 cm in the ascending portion and 4.3 cm in the descendi ng portion. Opacification of the thoracic aorta was insufficient to evaluate for dissection. Massively enlarged prostate. Significantly thick-walled urinary bladder. This may be secondary to chronic outlet obstruction alth ough cystitis is also a consideration. Correlate clinically and with urinalysis. Normal appendix Complex, fat containing umbilical/periumbilical hernia.
[2024-11-21 20:31] LABS: Urine Protein, UAD Negative (Negative)
[2024-11-21] MEDS ORDERED: DEXTROSE (50%) 50ML SYRG IV PRN (23:15)
[2024-11-21] MEDS ORDERED: NITROGLYCERIN 0.4 MG SL TAB SL PRN (23:15)
[2024-11-21] MEDS ORDERED: DOCUSATE SOD 100 MG CAP PO PRN (23:15)
[2024-11-21] MEDS ORDERED: MORPHINE SULFATE INJ 2 MG/ml SYRG IV PRN (23:15)
[2024-11-22] VITALS (39 sets, daily range): BP systolic 92–163; BP diastolic 44–86; PULSE 59–81; RESP 10–24; TEMP 97.9–98.6; O2SAT 94–99
[2024-11-22] MEDS: ATORVASTATIN 20 MG TAB PO ONE (00:17)
--- NOTE | 2024-11-22 02:45 | DVHHP2 ---
FRANCINE JOHNSON RN NAVIGATOR 11/22/24 0245: History of Present Illness Reason for Visit: Chest pain History of Present Illness 84-year-old male with past medical history of hypertension, hyperlipidemia, DM, umbilical hernia, thoracic aortic aneurysm presents with complaints of chest pain over the previous 3 months. Patient initially went to his PCP and was [facility] then defer the patient to the emergency department due to his given history and systolic blood pressure greater than 240. Patient describes chest pain as substernal pressure-like tightness, nonradiating, without associated factors. Patient states his registry rn is Dr. Doherty. On arrival to the emergency department patient's blood pressure was 234/114 with heart rate 63. Was treated with multiple doses of Catapres and blood pressure has continued with SBP greater than 200. During the emergency department evaluation CMP unremarkable. Troponin-3/4. CBC was unremarkable. UA negative for infection. CT of the chest abdomen pelvis with IV contrast impression reads no evidence of pulmonary embolism as far as the subsegmental level. Mildly aneurysmal thoracic aorta measuring 4.4 cm in the ascending portion and 3.43 cm in the descending portion. Opacification of the thoracic aorta was insufficient to evaluate for dissection. Massively enlarged prostate. Significantly thick walled urinary bladder may be secondary to c hronic outlet obstruction although cystitis is also a consideration. Correlate clinically and with UA. At this time patient denies fevers, chills, headaches, unilateral deficits, shortness of breath, palpitations, nausea, vomiting leg swelling, dysuria. Cardiovascular: HTN, hyperipidemia Endocrine: Diabetes Smoke: No ALCOHOL: none Drugs: None Lives: with Family Review of Systems Constitutional: No: Fever, Chills, Sweats, Weakness, Malaise, Other Eyes: No: Pain, Vision change, Conjunctivae inflammation, Eyelid inflammation, Other, Redness ENT: No: Ear pain, Ear discharge, Nose pain, Nose discharge, Nose congestion, Mouth pain, Mouth swelling, Throat pain, Throat swelling, Other Respiratory: No: Cough, Dry, Shortness of breath, SOB with excertion, Wheezing, Hemoptysis, Pleuritic Pain, Sputum, Wheezing, Other Cardiovascular: Chest Pain; No: Palpitations, Orthopnea, Paroxysmal Noc. Dysp tiago, Edema, Lt Headedness, Other Gastrointestinal: No: Nausea, Vomiting, Abdominal Pain, Diarrhea, Constipation, Melena, Hematochezia, Other Genitourinary: No Dysuria, No Frequency, No Incontinence, No Hematuria, No Retention, No Other Musculoskeletal: No: other, neck pain, shoulder pain, arm pain, back pain, hand pain, leg pain, foot pain Skin: No: Rash, Lesions, Jaundice, Bruising, Other Neurological: No: Weakness, Numbness, Incoordination, Change in speech, Confusion, Seizures, Other Allergies: Coded Allergies: NO KNOWN ALLERGIES (Unverified , 03/18/11) Medications Current Medications Medications Dose Ordered Sig/Tamika Route Start Time Stop Time Status Last Admin Dose Admin Docusate Sodium 100 mg BIDPRN PRN PO 11/21/24 23:15 Acetaminophen 650 mg Q6HP PRN PO 11/21/24 23:15 Acetaminophen/ Hydrocodone Bitart 1 tab Q4HP PRN PO 11/21/24 23:15 Enoxaparin Sodium 40 mg DAILY SC 11/22/24 10:00 Nitroglycerin 0.4 mg Q5MINP PRN SL 11/21/24 23:15 Morphine Sulfate 2 mg Q30M PRN IV 11/21/24 23:15 Nicardipine/ Sodium Chloride 200 ml @ 50 mls/hr Q4H IV 11/21/24 23:15 11/22/24 00:21 50 MLS/HR Pantoprazole Sodium 40 mg DAILY IV 11/22/24 10:00 Hydralazine HCl 10 mg Q4HPRN PRN IV 11/21/24 23:15 Clonidine HCl 0.1 mg Q8HP PRN PO 11/21/24 23:15 Tamsulosin HCl 0.4 mg DAILY PO 11/22/24 10:00 Aspirin 81 mg DAILY PO 11/22/24 10:00 Diagnostic Test (Pha) 1 strip ACHS 11/22/24 07:00 Insulin Human Regular ACHS SC 11/22/24 07:00 Dextrose 50 ml UD PRN IV 11/21/24 23:15 Losartan Potassium 100 mg DAILY PO 11/22/24 10:00 Exam Vital Signs Vital Signs Date Time Temp Pulse Resp B/P (MAP) Pulse Ox O2 Delivery O2 Flow Rate FiO2 11/22/24 01:15 57 13 155/76 (102) 96 11/22/24 00:10 97.7 97.7 11/22/24 00:00 Room Air* 0 21 General Appearance: Alert, Oriented X3, Cooperative, mild distress HEENT: Atraumatic, PERRLA, EOMI Respiratory: Clear to auscultation, Normal air movement Cardiovascular: Regular rate, Normal S1, Normal S2 Abdominal: Normal bowel sounds, Soft, No tenderness Extremities: No cyanosis, No edema Skin: No rashes, No breakdown Neuro: Normal gait, Normal speech, Strength at 5/5 X4 ext Psych/Mental Status: Mental status NL, Mood NL Labs/Xrays Labs Test 11/21/24 19:50 11/21/24 17:09 11/21/24 16:06 Range/Units Urine Color Light-yellow Yellow Urine Clarity Clear Clear Urine pH 6.5 5.0-9.0 Urine Specific [place] 1.036 H 1.001-1.035 Urine Protein Negative Negative Urine Ketones Negative Negative Urine Blood Negative Negative /uL Urine Nitrite Negative Negative Urine Bilirubin Negative Negative Urine Urobilinogen 2 H Negative mg/dL Urine Leukocyte Esterase Negative Negative /uL Urine RBC None seen 0 - 3 /hpf Urine Microscopic WBC < 1 0-3 /HPF Urine Squamous Epithelial Cells None seen <5 /hpf Urine Bacteria None seen None Seen /hpf Urine Glucose Normal Normal mg/dL Troponin I High Sensitivity 4 </=54 ng/L White Blood Count 4.5 4.4-10.8 10^3/uL Red Blood Count 3.74 L 4.5-5.90 10^6/uL Hemoglobin 11.6 L 13.5-17.5 g/dL Hematocrit 35.1 L 41.0-53.0 % Mean Corpuscular Volume 93.9 80.0-100.0 fL Mean Corpuscular Hemoglobin 30.9 28.0-32.0 pg Mean Corpuscular Hemoglobin Concent 32.9 32.0-36.0 g/dL Red Cell Distribution Width 13.2 11.8-14.3 % Platelet Count 147 140-450 10^3/uL Mean Platelet Volume 9.4 6.9-10.8 fL Neutrophils (%) (Auto) 68.8 37.0-80.0 % Lymphocytes (%) (Auto) 18.2 10.0-50.0 % Monocytes (%) (Auto) 10.4 0.0-12.0 % Eosinophils (%) (Auto) 1.9 0.0-7.0 % Basophils (%) (Auto) 0.7 0.0-2.0 % Neutrophils # (Auto) 3.1 1.6-8.6 10 ^3/uL Lymphocytes # (Auto) 0.8 0.4-5.4 10 ^3/uL Monocytes # (Auto) 0.5 0-1.3 10 ^3/uL Eosinophils # (Auto) 0.1 0-0.8 10 ^3/uL Basophils # (Auto) 0 0-0.2 10 ^3/uL Nucleated Red Blood Cells 0.1 % Sodium Level 140 136-145 mmol/L Potassium Level 3.6 3.5-5.1 mmol/L Chloride Level 106 98-107 mmol/L Carbon Dioxide Level 27 20-31 mmol/L Anion Gap 7 5-15 Blood Urea Nitrogen 9 9-23 mg/dL Creatinine 1.05 0.700-1.30 mg/dL Glomerular Filtration Rate Calc 71 >90 mL/min BUN/Creatinine Ratio 8.6 L 10.0-20.0 Serum Glucose 170 H 74-106 mg/dL Calcium Level 8.8 8.7-10.4 mg/dL Total Bilirubin 1.4 H 0.2-1.0 mg/dL Aspartate Amino Transferase (AST) 9 L 13-40 U/L Alanine Aminotransferase (ALT) 9 7-40 U/L Alkaline Phosphatase 56 46-116 U/L C-Reactive Protein High Sensitivity 0.03 <1.0 mg/dL B-Type Natriuretic Peptide 74.96 0-100 pg/mL Total Protein 5.9 5.7-8.2 g/dL Albumin 3.8 3.2-4.8 g/dL Lipase 47 12-53 U/L SEPSIS Sepsis Screen Date sepsis recognized/suspect: Nov 22, 2024 Time Sepsis recognized/suspect: 0000 Recent Procedure: No On Antibiotic Therapy: No Respiratory Rate >20: No Heart Rate >90: No Temp<36 C (96.8 F) or >38.3 C: No SBP <90 or MAP <65 mmHG: No New Acute Mental Status Change: No Is the patient on CPAP, BIPAP,: No Physician Orders Admit (11/21/24 23:07) Code Status (11/21/24 23:07) Vital Signs .PER UNIT PROTOCOL (11/21/24 23:07) Review Orders With Adm. (11/21/24 23:07) Encourage Activity As Tolerate (11/21/24 23:07) Consistent Carb(Ccho)Diabetes (11/22/24 Breakfast) Docusate Sodium Capsule (Colace Capsule) (11/21/24 23:15) Acetaminophen Tablet (Tylenol Tablet) (11/21/24 23:15) Notify Md Of Changes From Base (11/21/24 23:07) Advance Directive (11/21/24 23:07) Echo 2d Mode Cardiac Dop (11/21/24 23:07) Basic Metabolic Panel (11/22/24 05:00) Basic Metabolic Panel (11/23/24 05:00) Basic Metabolic Panel (11/24/24 05:00) Basic Metabolic Panel (11/25/24 05:00) Complete Blood Count (11/22/24 05:00) Complete Blood Count (11/23/24 05:00) Complete Blood Count (11/24/24 05:00) Complete Blood Count (11/25/24 05:00) Complete Blood Count (11/26/24 05:00) Patient Condition (11/21/24 23:07) Allergies (11/21/24 23:07) Hydrocodone-Acet 5/325mg Tab ([place] 5/32 (11/21/24 23:15) Enoxaparin Sodium (Lovenox) (11/22/24 10:00) Sequential Compression Device (11/21/24 ) Nitroglycerin Sublingual (Ntrostat Subli (11/21/24 23:15) Morphine Sulfate Injection (11/21/24 23:15) Stat Ekg For Chest Pain (11/21/24 23:07) Notify Md Of Changes From Base (11/21/24 23:07) Rn Community For 24 Hours (11/21/24 23:07) Emergency Dysrhythmia Protocol (11/21/24 23:07) Rhythm Strips Once Every Shift (11/21/24 23:07) Oxygen By Nasal Cannula (11/21/24 23:07) Nicardipine 20 Mg/200 Ml (Cardene Iv) (11/21/24 23:15) * Cardiology Consult (11/21/24 23:07) Pantoprazole (Protonix) (11/22/24 10:00) Hydralazine Injection (Apresoline Inject (11/21/24 23:15) Clonidine Hcl Tablet (Catapres Tablet) (11/21/24 23:15) Tamsulosin Hydrochloride (Flomax) (11/22/24 10:00) Communication Order (11/21/24 23:07) Aspirin Enteric Coated Tablet (Ecotrin E (11/22/24 10:00) Glucose Blood (Accu-Chek Comfort Curve T (11/22/24 07:00) Insulin R (Human) (Insulin R) (11/22/24 07:00) Dextrose 50% Syringe (11/21/24 23:15) Consult Vascular/Endovascular (11/21/24 23:18) Losartan Tablet (Cozaar Tablet) (11/22/24 10:00) Vital Signs Date Time Temp Pulse Resp B/P (MAP) Pulse Ox O2 Delivery O2 Flow Rate FiO2 11/22/24 01:15 57 13 155/76 (102) 96 11/22/24 01:00 158/79 11/22/24 01:00 58 14 158/79 (105) 95 11/22/24 00:45 63 20 171/83 (112) 97 11/22/24 00:30 59 13 159/76 (103) 99 11/22/24 00:30 159/76 11/22/24 00:21 212/90 11/22/24 00:15 54 11 212/90 (130) 98 11/22/24 00:10 97.7 54 11 226/110 (148) 98 97.7 11/22/24 00:00 Room Air* 0 21 11/21/24 22:34 215/101 11/21/24 22:03 97.4 54 16 215/101 (139) 99 97.4 11/21/24 19:01 58 16 148/87 (107) 99 11/21/24 18:59 147/89 11/21/24 18:30 61 Laboratory Tests Test 11/21/24 16:06 White Blood Count 4.5 10^3/uL (4.4-10.8) Medications Medications Dose Ordered Sig/Tamika Route Start Time Stop Time Status Last Admin Dose Admin Atorvastatin Calcium 40 mg ONCE ONCE PO 11/21/24 23:15 11/21/24 23:27 DC 11/22/24 00:17 40 MG Clonidine HCl 0.2 mg ONCE ONCE PO 11/21/24 18:00 11/21/24 18:01 DC 11/21/24 17:59 0.2 MG Clonidine HCl 0.2 mg ONCE ONCE PO 11/21/24 22:15 11/21/24 22:20 DC 11/21/24 22:34 0.2 MG Nicardipine/ Sodium Chloride 200 ml @ 50 mls/hr Q4H IV 11/21/24 23:15 11/22/24 00:21 50 MLS/HR Assessment/Plan Assessment/Plan Hypertensive emergency Chest pain Hx thoracic aorta aneurysm DM Plan Admit ICU Cardiology consult. Echocardiogram. Continue home medication. As needed antihypertensive for optimal BP management. Nicardipine drip. Vascular consult Blood glucose check with regular insulin sliding scale coverage GI ppx protonix / dvt ppx scd Plan discussed with: Patient My Orders Orders - FRANCINE JOHNSON NP Procedure Category Date Status Time Admit ADMIT 11/21/24 Transmitted 23:07 Code Status CODE 11/21/24 Transmitted 23:07 Vital Signs [facility] 11/21/24 In Process 23:07 Review Orders With ELENA 11/21/24 In Process Adm. 23:07 Encourage Activity As ELENA 11/21/24 In Process Tolerate 23:07 Consistent DIET 11/22/24 Transmitted Carb(Ccho)Diabetes Breakfast Docusate Sodium PHA 11/21/24 In Process Capsule (Colace 23:15 Acetaminophen Tablet PHA 11/21/24 In Process (Tylenol Tablet) 23:15 Notify Of Changes ELENA 11/21/24 In Process From Base 23:07 Advance Directive ELENA 11/21/24 In Process 23:07 Echo 2d Mode Cardiac US 11/21/24 Logged DOP 23:07 Basic Metabolic Panel LAB 11/22/24 Logged 05:00 Basic Metabolic Panel LAB 11/23/24 Verified 05:00 Basic Metabolic Panel LAB 11/24/24 Verified 05:00 Basic Metabolic Panel LAB 11/25/24 Verified 05:00 Complete Blood Count LAB 11/22/24 Logged 05:00 Complete Blood Count LAB 11/23/24 Verified 05:00 Complete Blood Count LAB 11/24/24 Verified 05:00 Complete Blood Count LAB 11/25/24 Verified 05:00 Complete Blood Count LAB 11/26/24 Verified 05:00 Patient Condition ORDERS 11/21/24 Transmitted 23:07 Allergies ELENA 11/21/24 In Process 23:07 Hydrocodone-Acet PHA 11/21/24 In Process 5/325mg Tab ([place] 23:15 Enoxaparin Sodium PHA 11/22/24 In Process (Lovenox) 10:00 Sequential ELENA 11/21/24 In Process Compression Device Nitroglycerin PHA 11/21/24 In Process Sublingual (Ntrostat 23:15 Morphine Sulfate PHA 11/21/24 In Process Injection 23:15 Stat Ekg For Chest ELENA 11/21/24 In Process Pain 23:07 Notify Md Of Changes ELENA 11/21/24 In Process From Base 23:07 Rn Community For ELENA 11/21/24 In Process 24 Hours 23:07 Emergency Dysrhythmia ELENA 11/21/24 In Process Protocol 23:07 Rhythm Strips Once ELENA 11/21/24 In Process Every Shift 23:07 Oxygen By Nasal RT 11/21/24 Transmitted Cannula 23:07 Nicardipine 20 Mg/200 PHA 11/21/24 In Process Ml (Cardene Iv) 23:15 * Cardiology Consult CONS 11/21/24 Transmitted 23:07 Pantoprazole PHA 11/22/24 In Process (Protonix) 10:00 Hydralazine Injection PHA 11/21/24 In Process (Apresoline Inject 23:15 Clonidine Hcl Tablet PHA 11/21/24 In Process (Catapres Tablet) 23:15 Tamsulosin PHA 11/22/24 In Process Hydrochloride (Flomax) 10:00 Communication Order ORDERS 11/21/24 Transmitted 23:07 Aspirin Enteric PHA 11/22/24 In Process Coated Tablet 10:00 Glucose Blood PHA 11/22/24 In Process (Accu-Chek Comfort 07:00 Insulin R (Human) PHA 11/22/24 In Process (Insulin R) 07:00 Dextrose 50% Syringe PHA 11/21/24 In Process 23:15 Consult CONS 11/21/24 Transmitted Vascular/Endovascular 23:18 Losartan Tablet PHA 11/22/24 In Process (Cozaar Tablet) 10:00 Date of Service: Nov 22, 2024 Billing Provider: JACI WARD MD Common Visit Codes: NOT BILLABLE JACI WARD MD 11/22/24 1419: Review of Systems Allergies: Coded Allergies: NO KNOWN ALLERGIES (Unverified , 03/18/11) Additional Comments Additional Comments Additional Comments 84-year-old male with a known history of hypertension, dyslipidemia , diabetes mellitus type 2, BPH, chronic insomnia initially presented to the hospital with chest tightness on and off for last three months found to have 1. Hypertensive emergency currently off of narcotic heparin drip 2. Chest pain ruled out acute NC with a negative cardiac markers 3. Dyslipidemia 4. Diabetes mellitus type 2 5. BPH 6. Chronic insomnia -patient is off of nicardipine drip, resume losartan and beta jose, downgraded to telemetry, discharge plan. FRANCINE JOHNSON NP Nov 22, 2024 02:45 JACI WARD MD Nov 22, 2024 14:19
[2024-11-22 04:09] LABS: Hematocrit 40.0 % (41.0-53.0); Hemoglobin 13.3 g/dL (13.5-17.5); Mean Corpuscular Hemoglobin 31.5 pg (28.0-32.0); Mean Corpuscular Volume 94.4 fL (80.0-100.0); Nucleated Red Blood Cells % 0.1 %
[2024-11-22 04:22] LABS: Chloride 103 mmol/L (98-107); Potassium 3.6 mmol/L (3.5-5.1); Sodium 137 mmol/L (136-145)
[2024-11-22 04:23] LABS: Anion Gap 11 (5-15); Calcium 9.3 mg/dL (8.7-10.4); Carbon Dioxide 23 mmol/L (20-31)
[2024-11-22 04:28] LABS: BUN/Creatinine Ratio 7.6 (10.0-20.0); Blood Urea Nitrogen 6 mg/dL (9-23); Glucose 130 mg/dL (74-106)
[2024-11-22] MEDS: ACCU-CHEK COMFORT CURVE STRIP VI SCH (06:42)
[2024-11-22] MEDS: InsuLIN REG 1unit/0.01ml Soln (100units/ml) SC SCH (06:42)
[2024-11-22] MEDS: ASPirin-EC 81 mg tab PO SCH (09:39)
[2024-11-22] MEDS: PANTOPRAZOLE 40 MG/10 ML VIAL INJ IV SCH (09:39)
[2024-11-22] MEDS: TAMSULOSIN HYDROCHLORIDE 0.4 MG CAP PO SCH (09:39)
[2024-11-22] MEDS: LOSARTAN POTASSIUM 50 MG TAB PO SCH (09:42)
[2024-11-22] MEDS ORDERED: ENOXAPARIN SOD 40 MG/0.4 ML SYRINGE SC SCH (10:00)
[2024-11-22] MEDS ORDERED: TAMS0.4C39 PO (12:41)
--- NOTE | 2024-11-22 13:25 | DVHINCON2 ---
Date of service: Nov 22, 2024 History of Present Illness 84-year-old male with past medical history of hypertension, hyperlipidemia, DM, umbilical hernia, thoracic aortic aneurysm presents with complaints of chest pain over the previous 3 months. Patient initially went to his PCP and was [facility] then defer the patient to the emergency department due to his given history and systolic blood pressure greater than 240. Patient describes chest pain as substernal pressure-like tightness, nonradiating, without associated factors. Patient states his careers adviser is Dr. Doherty. On arrival to the emergency department patient's blood pressure was 234/114 with heart rate 63. Was treated with multiple doses of Catapres and blood pressure has continued with SBP greater than 200. During the emergency department evaluation CMP unremarkable. Troponin-3/4. CBC was unremarkable. UA negative for infection. CT of the chest abdomen pelvis with IV contrast impression reads no evidence of pulmonary embolism as far as the subsegmental level. Mildly aneurysmal thoracic aorta measuring 4.4 cm in the ascending portion and 3.43 cm in the descending portion. Opacification of the thoracic aorta was insufficient to evaluate for dissection. Massively enlarged prostate. Significantly thick walled urinary bladder may be secondary to chronic outlet obstruction although cystitis is also a consideration. Correlate clinically and with UA. At this time patient denies fevers, chills, headaches, unilateral deficits, shortness of breath, palpitations, nausea, vomiting leg swelling, dysuria. Cardiovascular: HTN, hyperipidemia Endocrine: Diabetes Smoke: No ALCOHOL: none Drugs: None Lives: with Family Past Medical History reviwed Family History: Hypertension G8 MOTHER Allergies: Coded Allergies: NO KNOWN ALLERGIES (Unverified , 03/18/11) Home Meds Active Scripts Hydrocodone-Acetaminophen (Hydrocodone Bitartrate/AC 5-325 mg) 1 Tab Tab, 1 TAB PO Q8HP PRN for 3 Days, #9 TAB Prov:MICHELLE MAYS MD 10/18/24 Pantoprazole Sodium Sesquihydr (Pantoprazole Sodium) 40 Mg Tab, 40 MG PO DAILY, #60 TAB Prov:DIANNA JEAN BAPTISTE MD 03/09/24 Trazodone Hcl (Trazodone Hcl) 100 Mg Tab, 1 TAB PO QHSP PRN for FOR INSOMNIA, #30 TAB Prov:DIANNA JEAN BAPTISTE MD 03/09/24 Losartan Potassium (Losartan Potassium) 100 Mg Tab, 1 TAB PO DAILY, #60 TAB Prov:DIANNA JEAN BAPTISTE MD 08/15/23 Acetaminophen (Acetaminophen) 500 Mg Tab, 500 MG PO Q6HP PRN for 5 Days, #20 TAB Prov:JOEL SOUSA MD 03/21/23 Reported Medications Tamsulosin Hcl (Tamsulosin Hcl) 0.4 Mg Cap, 0.4 MG PO QPM for 30 Days, MG 11/22/24 Pravastatin Sodium (PRAVACHOL TABLET) 20 Mg Tb, 80 MG PO DAILY, TAB 08/12/23 Metoprolol Tartrate (LOPRESSOR TABLET) 50 Mg Tb, 50 MG PO DAILY, TAB 08/12/23 Nitroglycerin (Nitroglycerin) 0.3 Mg Sub 03/19/11 Aspirin (Asa) 81 Mg Ch 03/19/11 Metformin Hydrochloride (Metformin Hcl Er) 500 Mg Tab 03/18/11 Current Medications Current Medications Medications (Trade) Dose Ordered Sig/Tamika Route PRN Reason Start Time Stop Time Status Last Admin Docusate Sodium (Colace Capsule) 100 mg BIDPRN PRN PO FOR CONSTIPATION 11/21/24 23:15 Acetaminophen (Tylenol Tablet) 650 mg Q6HP PRN PO PAIN SCALE 1-3 OR TEMP>100.4 11/21/24 23:15 Acetaminophen/ Hydrocodone Bitart ([place] 5/325MG Tab) 1 tab Q4HP PRN PO MODERATE PAIN (4-6 PAIN SCALE) 11/21/24 23:15 Enoxaparin Sodium (Lovenox) 40 mg DAILY SC 11/22/24 10:00 Cancel Nitroglycerin (Ntrostat Sublingual) 0.4 mg Q5MINP PRN SL FOR CHEST PAIN 11/21/24 23:15 Morphine Sulfate 2 mg Q30M PRN IV FOR CHEST PAIN 11/21/24 23:15 Nicardipine/ Sodium Chloride 200 ml @ 50 mls/hr Q4H IV 11/21/24 23:15 11/22/24 03:41 Pantoprazole Sodium (Protonix) 40 mg DAILY IV 11/22/24 10:00 11/22/24 09:39 Hydralazine HCl (Apresoline Injection) 10 mg Q4HPRN PRN IV SBP > 160 11/21/24 23:15 Clonidine HCl (Catapres Tablet) 0.1 mg Q8HP PRN PO SBP > 180 11/21/24 23:15 Tamsulosin HCl (Flomax) 0.4 mg DAILY PO 11/22/24 10:00 11/22/24 09:39 Aspirin (Ecotrin Enteric Coated Tablet) 81 mg DAILY PO 11/22/24 10:00 11/22/24 09:39 Diagnostic Test (Pha) (Accu-Chek Comfort Curve T) 1 strip ACHS 11/22/24 07:00 11/22/24 12:03 Insulin Human Regular (InsuLIN R) ACHS SC 11/22/24 07:00 Dextrose 50 ml UD PRN IV Blood Sugar LESS THAN 60 11/21/24 23:15 Losartan Potassium (Cozaar Tablet) 100 mg DAILY PO 11/22/24 10:00 11/22/24 09:42 Review of Systems 10 pt ros otherwise negative Vital Signs Vital Signs Date Time Temp Pulse Resp B/P (MAP) Pulse Ox O2 Delivery O2 Flow Rate FiO2 11/22/24 11:15 150/82 11/22/24 07:43 97.9 63 23 97 97.9 11/22/24 07:43 Room Air* 0 21 Physical Exam nad s1 s2 rrr ctab soft nt/nd no edema Labs/Diagnostic Data Labs Test 11/22/24 12:02 11/22/24 03:43 11/21/24 19:50 11/21/24 17:09 Range/Units POC Glucose 180 H 70-106 mg/dl White Blood Count 6.4 # 4.4-10.8 10^3/uL Red Blood Count 4.23 L 4.5-5.90 10^6/uL Hemoglobin 13.3 L 13.5-17.5 g/dL Hematocrit 40.0 #L 41.0-53.0 % Mean Corpuscular Volume 94.4 80.0-100.0 fL Mean Corpuscular Hemoglobin 31.5 28.0-32.0 pg Mean Corpuscular Hemoglobin Concent 33.3 32.0-36.0 g/dL Red Cell Distribution Width 13.4 11.8-14.3 % Platelet Count 113 L 140-450 10^3/uL Mean Platelet Volume 10.0 6.9-10.8 fL Neutrophils (%) (Auto) 74.5 37.0-80.0 % Lymphocytes (%) (Auto) 14.0 10.0-50.0 % Monocytes (%) (Auto) 9.3 0.0-12.0 % Eosinophils (%) (Auto) 1.8 0.0-7.0 % Basophils (%) (Auto) 0.4 0.0-2.0 % Neutrophils # (Auto) 4.8 1.6-8.6 10 ^3/uL Lymphocytes # (Auto) 0.9 0.4-5.4 10 ^3/uL Monocytes # (Auto) 0.6 0-1.3 10 ^3/uL Eosinophils # (Auto) 0.1 0-0.8 10 ^3/uL Basophils # (Auto) 0 0-0.2 10 ^3/uL Nucleated Red Blood Cells 0.1 % Sodium Level 137 136-145 mmol/L Potassium Level 3.6 3.5-5.1 mmol/L Chloride Level 103 98-107 mmol/L Carbon Dioxide Level 23 20-31 mmol/L Anion Gap 11 5-15 Blood Urea Nitrogen 6 L 9-23 mg/dL Creatinine 0.79 0.700-1.30 mg/dL Glomerular Filtration Rate Calc 89 >90 mL/min BUN/Creatinine Ratio 7.6 L 10.0-20.0 Serum Glucose 130 H 74-106 mg/dL Calcium Level 9.3 8.7-10.4 mg/dL Urine Color Light-yellow Yellow Urine Clarity Clear Clear Urine pH 6.5 5.0-9.0 Urine Specific [place] 1.036 H 1.001-1.035 Urine Protein Negative Negative Urine Ketones Negative Negative Urine Blood Negative Negative /uL Urine Nitrite Negative Negative Urine Bilirubin Negative Negative Urine Urobilinogen 2 H Negative mg/dL Urine Leukocyte Esterase Negative Negative /uL Urine RBC None seen 0 - 3 /hpf Urine Microscopic WBC < 1 0-3 /HPF Urine Squamous Epithelial Cells None seen <5 /hpf Urine Bacteria None seen None Seen /hpf Urine Glucose Normal Normal mg/dL Troponin I High Sensitivity 4 </=54 ng/L Test 11/21/24 16:06 Range/Units Total Bilirubin 1.4 H 0.2-1.0 mg/dL Aspartate Amino Transferase (AST) 9 L 13-40 U/L Alanine Aminotransferase (ALT) 9 7-40 U/L Alkaline Phosphatase 56 46-116 U/L C-Reactive Protein High Sensitivity 0.03 <1.0 mg/dL B-Type Natriuretic Peptide 74.96 0-100 pg/mL Total Protein 5.9 5.7-8.2 g/dL Albumin 3.8 3.2-4.8 g/dL Lipase 47 12-53 U/L Assessment malignant HTN ckd thoracic aortic aneurysm hl Plan/Recommendation restarted losartan and BB off cardene gtt clonidine prn echo for lvef vascular consult, likely medical management given size tele status Plan discussed with: Patient SAVANNAH FITZPATRICK MD Nov 22, 2024 13:25
--- NOTE | 2024-11-22 17:46 | DVHINCON2 ---
DATE OF CONSULTATION: 11/22/2024 INDICATION: Hypertensive emergency. Consulting physician Dr. Serrano HISTORY OF PRESENT ILLNESS: The patient is an 84-year-old male with a history of coronary artery disease status post angioplasty several years ago, history of hypertension, diabetes, was sent to the hospital from Urgent Care after he was noted to have markedly elevated blood pressure. The patient at that time was also complaining of chest pain. On presentation, his blood pressure was systolic in the 240 range and diastolic in the 120 range. The patient was started on Cardene drip. Currently, blood pressure is better controlled. He is currently chest pain free. IN has been ruled out with serial negative troponin. PAST MEDICAL HISTORY: * History of CAD, status post angioplasty. * Hypertension. * Diabetes. MEDICATIONS: Per med rec. ALLERGIES: No known drug allergies PHYSICAL EXAMINATION: GENERAL: Alert and awake, in no form of cardiopulmonary distress. VITAL SIGNS: Blood pressure 143/68, pulse 68 per minute, saturation 98%. HEENT: No carotid bruits. No jugular venous distention. CHEST: Bilateral air entry. CARDIOVASCULAR: Precordial and carotid pulses palpable. Normal S1, S2. Regular rate and rhythm. No appreciable gallops or rubs. EXTREMITIES: No peripheral edema. DIAGNOSTIC DATA: CBC: White count 6, hemoglobin 13, platelets 113. Sodium 137, potassium 3.6, creatinine 0.7. Troponin negative x2. ASSESSMENT: * Hypertensive urgency. Currently, blood pressure is better controlled. * Chest pain, possibly secondary to above. IN has been rule out with serial negative troponin. Doubt ACS * mild ascending thoracic aortic aneurysm stable. * History of CAD, status post angioplasty. * Diabetes. RECOMMENDATIONS: * The patient is currently off the Cardene drip. * Continue losartan. * Restart metoprolol. * monitor thoracic aortic aneurysm as an outpatient * Monitor electrolytes. * Will review echo once completed. * The patient will be downgraded to telemetry. * If echo unremarkable, no further cardiac workup indicated. Thank you for allowing me to partake in the care of this patient. MD ALETHEA Araiza/OSMAN/DRISS TID: [id number] RECEIPT: [id number] [facility]
[2024-11-23] VITALS (10 sets, daily range): BP systolic 103–166; BP diastolic 58–100; PULSE 63–109; RESP 16–97; TEMP 98.1–98.8; O2SAT 97–100
[2024-11-23] MEDS: hydrALAZINE HCL 20 MG/ML VL IV PRN (05:33)
[2024-11-23] MEDS: ACETAMINOPHEN 325 MG TAB PO PRN (05:34)
[2024-11-23 07:41] LABS: Chloride 105 mmol/L (98-107); Potassium 3.5 mmol/L (3.5-5.1); Sodium 140 mmol/L (136-145)
[2024-11-23 07:42] LABS: Anion Gap 9 (5-15); Calcium 9.0 mg/dL (8.7-10.4); Carbon Dioxide 26 mmol/L (20-31)
[2024-11-23 07:47] LABS: BUN/Creatinine Ratio 9.7 (10.0-20.0); Glucose 92 mg/dL (74-106); Hematocrit 36.5 % (41.0-53.0); Hemoglobin 12.4 g/dL (13.5-17.5); Mean Corpuscular Hemoglobin 31.6 pg (28.0-32.0); Mean Corpuscular Volume 92.7 fL (80.0-100.0); Nucleated Red Blood Cells % 0.1 %
[2024-11-23 07:52] LABS: Blood Urea Nitrogen 9 mg/dL (9-23)
--- NOTE | 2024-11-23 09:39 | DVHSR ---
APPROVED REPORT EXAM: LIMITED Two-dimensional and M-mode echocardiogram. Blood Pressure: 163/79 mmHg INDICATION Chest Pain RISK FACTORS Height: 5' 9", Weight: 160 DIMENSIONS LVDd4.0 (3.8-5.7cm)LA (2D)3.9 (1.9-4.0cm)Aortic Root3.6 (2.0-3.7cm) LVDs2.8 (2.5-4.0cm)LA (MM) (1.9-4.0cm)Aortic Cusp Exc2.1 (1.5-2.0cm) EF (%) 57.0 (55-70%)Rt. Atrium4.4 (1.9-4.0cm)Asc. Aorta cm IVSd0.9 (0.7-1.1cm)RV (D) (1.8-2.4cm) PWd1.0 (0.7-1.1cm) Mitral Valve MitralMitral Stenosis E wave0.90m/sMV Mean GR.mmHg A wave1.40m/sMV Peak GR.mmHg E/A ratio0.62D MVAcm2 Aortic Valve Aortic ValveAortic Stenosis V11.10m/Maryjane Mean GR.3mmHg V21.20m/Maryjane Peak GR.7mmHg LVOT Diameter2.1 (1.8-2.4cm)Doppler AVA3.17cm2 Other Information Quality : Technically LimitedRhythm : Technically limited study due to body habitus, apical views only. Conclusion lvef55% moderate sigmoid septum consider optison/ contrast shot very limited study image quality
[2024-11-23] MEDS ORDERED: METOPROLOL TARTRATE 50 MG TAB PO ONE (10:00)
--- NOTE | 2024-11-23 12:29 | DVHPN2 ---
Progress Note Date Seen: Nov 23, 2024 Medical Necessity Reason Pt with a Central, PICC or Fol: No Subjective Patient reports: Feels better Objective vital signs Vital Sign Date Time Temp Pulse Resp B/P (MAP) Pulse Ox O2 Delivery O2 Flow Rate FiO2 11/23/24 08:30 99 16 99 Nasal Cannula* 1 11/23/24 06:23 143/67 (92) 11/23/24 05:00 98.3 98.3 Total Intake and Output 11/22/24 11/22/24 11/23/24 14:59 22:59 06:59 Intake Total 625 ml 100 ml Balance 625 ml 100 ml medications Current Medications Medications Dose Ordered Sig/Tamika Route Start Time Stop Time Status Last Admin Dose Admin Docusate Sodium 100 mg BIDPRN PRN PO 11/21/24 23:15 Acetaminophen 650 mg Q6HP PRN PO 11/21/24 23:15 11/23/24 05:34 650 MG Acetaminophen/ Hydrocodone Bitart 1 tab Q4HP PRN PO 11/21/24 23:15 Enoxaparin Sodium 40 mg DAILY SC 11/22/24 10:00 Cancel Nitroglycerin 0.4 mg Q5MINP PRN SL 11/21/24 23:15 Morphine Sulfate 2 mg Q30M PRN IV 11/21/24 23:15 Pantoprazole Sodium 40 mg DAILY IV 11/22/24 10:00 11/23/24 09:47 40 MG Hydralazine HCl 10 mg Q4HPRN PRN IV 11/21/24 23:15 11/23/24 05:33 10 MG Clonidine HCl 0.1 mg Q8HP PRN PO 11/21/24 23:15 Aspirin 81 mg DAILY PO 11/22/24 10:00 11/23/24 09:48 81 MG Diagnostic Test (Pha) 1 strip ACHS 11/22/24 07:00 11/23/24 11:29 1 STRIP Insulin Human Regular ACHS SC 11/22/24 07:00 Dextrose 50 ml UD PRN IV 11/21/24 23:15 Losartan Potassium 100 mg DAILY PO 11/22/24 10:00 11/22/24 09:42 100 MG Metoprolol Succinate 50 mg DAILY PO 11/23/24 10:00 Tamsulosin HCl 0.4 mg QPM PO 11/23/24 18:00 Examination: GENERAL:Abnormal, HEENT:Abnormal, LUNGS:Abnormal, CVS:Abnormal, ABDOMEN:Abnormal laboratory and microbiology Laboratory Tests 11/23/24 05:44 Test 11/23/24 05:44 Range/Units Serum Glucose 92 74-106 mg/dL Microbiology Date/Time Source Procedure Growth Status 11/22/24 06:45 Nose MRSA Screen - Final Complete Problem List/Assessment/Plan Problem List/Assessment/Plan htn emergency---bp improved cont current meds lvef stable on echo thoracic aortic aneurysm stable -needs better bp control however dc home when medically stable cv cleared signing off, pt seen with RN Plan discussed with: Patient My Orders My Orders Orders - SAVANNAH FITZPATRICK MD Procedure Category Date Status Time Metoprolol Xl PHA 11/23/24 In Process Succinate (Toprol Xl) 10:00 Echo 2d Mode Cardiac US 11/23/24 Logged DOP Date of Service: Nov 23, 2024 Billing Provider: SAVANNAH FITZPATRICK MD Common Visit Codes: NOT BILLABLE SAVANNAH FITZPATRICK MD Nov 23, 2024 12:29
[2024-11-23] MEDS ORDERED: METO-6 PO (12:48)
--- NOTE | 2024-11-23 12:50 | DVHDS2 ---
Discharge Summary Date of Admission Nov 21, 2024 at 23:07 Date of Discharge: Nov 23, 2024 Labs/Diagnostic Data: Laboratory Results Test 11/23/24 11:28 11/23/24 05:44 11/21/24 19:50 11/21/24 17:09 POC Glucose 111 mg/dl (70-106) White Blood Count 5.5 10^3/uL (4.4-10.8) Red Blood Count 3.94 10^6/uL (4.5-5.90) Hemoglobin 12.4 g/dL (13.5-17.5) Hematocrit 36.5 % (41.0-53.0) Mean Corpuscular Volume 92.7 fL (80.0-100.0) Mean Corpuscular Hemoglobin 31.6 pg (28.0-32.0) Mean Corpuscular Hemoglobin Concent 34.0 g/dL (32.0-36.0) Red Cell Distribution Width 12.9 % (11.8-14.3) Platelet Count 125 10^3/uL (140-450) Mean Platelet Volume 10.8 fL (6.9-10.8) Neutrophils (%) (Auto) 67.9 % (37.0-80.0) Lymphocytes (%) (Auto) 17.5 % (10.0-50.0) Monocytes (%) (Auto) 11.7 % (0.0-12.0) Eosinophils (%) (Auto) 2.6 % (0.0-7.0) Basophils (%) (Auto) 0.3 % (0.0-2.0) Neutrophils # (Auto) 3.7 10 ^3/uL (1.6-8.6) Lymphocytes # (Auto) 1.0 10 ^3/uL (0.4-5.4) Monocytes # (Auto) 0.6 10 ^3/uL (0-1.3) Eosinophils # (Auto) 0.1 10 ^3/uL (0-0.8) Basophils # (Auto) 0 10 ^3/uL (0-0.2) Nucleated Red Blood Cells 0.1 % Sodium Level 140 mmol/L (136-145) Potassium Level 3.5 mmol/L (3.5-5.1) Chloride Level 105 mmol/L (98-107) Carbon Dioxide Level 26 mmol/L (20-31) Anion Gap 9 (5-15) Blood Urea Nitrogen 9 mg/dL (9-23) Creatinine 0.93 mg/dL (0.700-1.30) Glomerular Filtration Rate Calc 82 mL/min (>90) BUN/Creatinine Ratio 9.7 (10.0-20.0) Serum Glucose 92 mg/dL (74-106) Calcium Level 9.0 mg/dL (8.7-10.4) Urine Color Light-yellow (Yellow) Urine Clarity Clear (Clear) Urine pH 6.5 (5.0-9.0) Urine Specific [place] 1.036 (1.001-1.035) Urine Protein Negative (Negative) Urine Ketones Negative (Negative) Urine Blood Negative /uL (Negative) Urine Nitrite Negative (Negative) Urine Bilirubin Negative (Negative) Urine Urobilinogen 2 mg/dL (Negative) Urine Leukocyte Esterase Negative /uL (Negative) Urine RBC None seen /hpf (0 - 3) Urine Microscopic WBC < 1 /HPF (0-3) Urine Squamous Epithelial Cells None seen /hpf (<5) Urine Bacteria None seen /hpf (None Seen) Urine Glucose Normal mg/dL (Normal) Troponin I High Sensitivity 4 ng/L (</=54) Test 11/21/24 16:06 Total Bilirubin 1.4 mg/dL (0.2-1.0) Aspartate Amino Transferase (AST) 9 U/L (13-40) Alanine Aminotransferase (ALT) 9 U/L (7-40) Alkaline Phosphatase 56 U/L (46-116) C-Reactive Protein High Sensitivity 0.03 mg/dL (<1.0) B-Type Natriuretic Peptide 74.96 pg/mL (0-100) Total Protein 5.9 g/dL (5.7-8.2) Albumin 3.8 g/dL (3.2-4.8) Lipase 47 U/L (12-53) Other Laboratory Tests 11/23/24 05:44 Brief Hx & Hospital Course: 84-year-old male with a known history of hypertension, dyslipidemia , diabetes mellitus type 2, BPH, chronic insomnia initially presented to the hospital with chest tightness on and off for last three months found to have hypertensive emergency requiring nicardipine drip. Patient was ruled out for acute AL. Patient was seen by Cardiology and cleared to be discharged. Patient does was on nicardipine drip which was discontinued and switched to p.o. medications. Patient is being discharged under stable condition with the home health home safety evaluation. Patient needs to follow up with the PCP and Cardiology in 1- 2 Condition at Discharge: Stable Final Diagnosis/Problems List 84-year-old male with a known history of hypertension, dyslipidemia , diabetes mellitus type 2, BPH, chronic insomnia initially presented to the hospital with chest tightness on and off for last three months found to have 1. Hypertensive emergency currently off of narcotic heparin drip 2. Chest pain ruled out acute AL with a negative cardiac markers 3. Dyslipidemia 4. Diabetes mellitus type 2 5. BPH 6. Chronic insomnia 7. Thoracic aorta aneurysm Discharge Disposition: Home SNF Discharge Will this Physician continue t: No Discharge Instruct/Medications Diet: Cardiac 2g Na,low cholest Diet comment: 1999 ADA diet. Activity: See Comment Activity comment: No driving, no signing legal documents, no playing on machinery while on narcotics. Follow Up/Referral: Follow up with the PCP and Cardiology in 1-2 weeks. Medications: Resume home medications. New prescription as prescribed. Scheduled Losartan Potassium (Losartan Potassium), 1 TAB PO DAILY Metoprolol Succinate (Toprol Xl), 50 MG PO DAILY Metoprolol Tartrate (Lopressor Tablet), 50 MG PO DAILY, (Reported) Pantoprazole Sodium Sesquihydr (Pantoprazole Sodium), 40 MG PO DAILY Pravastatin Sodium (Pravachol Tablet), 80 MG PO DAILY, (Reported) Tamsulosin Hcl (Tamsulosin Hcl), 0.4 MG PO QPM, (Reported) Scheduled PRN Acetaminophen (Acetaminophen), 500 MG PO Q6HP PRN Hydrocodone-Acetaminophen (Hydrocodone Bitartrate/AC 5-325 mg), 1 TAB PO Q8HP PRN Trazodone Hcl (Trazodone Hcl), 1 TAB PO QHSP PRN for FOR INSOMNIA Miscellaneous Medications Aspirin (Asa), (Reported) Metformin Hydrochloride (Metformin Hcl Er), (Reported) Nitroglycerin (Nitroglycerin), (Reported) Discharge Statement: "Patient was advised to return to the ER or call 911 if any headaches, dizziness, shortness of breath, chest pain, abdominal pain, bleeding, fevers, or worsening of medical condition. Patient was counseled about treatment plan, medications, possible side effects, patientverbalized understanding. All questions were answered to the best of my ability. This discharge took greater then 30 minutes in planning, reviewing documentation, counseling the patient, and discussing with other team members." ASSESSMENT ASSESSMENT Assessment 84-year-old male with a known history of hypertension, dyslipidemia , diabetes mellitus type 2, BPH, chronic insomnia initially presented to the hospital with chest tightness on and off for last three months found to have 1. Hypertensive emergency currently off of narcotic heparin drip 2. Chest pain ruled out acute AL with a negative cardiac markers 3. Dyslipidemia 4. Diabetes mellitus type 2 5. BPH 6. Chronic insomnia 7. Thoracic aorta aneurysm Date of Service: Nov 23, 2024 Billing Provider: JACI WARD MD Common Visit Codes: NOT BILLABLE JACI WARD MD Nov 23, 2024 12:50
[2024-11-23] MEDS: METOPROLOL SUCCINATE XL 50 MG TAB PO SCH (14:43)
[2024-11-23] MEDS: TAMSULOSIN HYDROCHLORIDE 0.4 MG CAP PO SCH (17:26)
[2024-11-23] MEDS: HYDROcodone-ACET 5/325MG TAB PO PRN (18:26)
== END 2024-11-23 19:25 | disposition home health service (06) | DRG 305 ==
LOC: EDUNIT# 15:39 → ER 15:39 → EDBD 15:39 → OVERFLOW 23:07 → ICU WEST 11-22 07:42 → TELE-WESTW 11-22 17:52
PROVIDERS: ADMIT Nurse Practitioner Family; ATTEND Nurse Practitioner Family
DX: I16.1 Hypertensive emergency (principal); I25.10 Atherosclerotic heart disease of native coronary artery without angina pectoris; I71.20 Thoracic aortic aneurysm, without rupture, unspecified; N18.9 Chronic kidney disease, unspecified; F32.A Depression, unspecified; E11.22 Type 2 diabetes mellitus with diabetic chronic kidney disease; I12.9 Hypertensive chronic kidney disease with stage 1 through stage 4 chronic kidney disease, or unspecified chronic kidney disease; N40.0 Benign prostatic hyperplasia without lower urinary tract symptoms; E78.5 Hyperlipidemia, unspecified; F51.04 Psychophysiologic insomnia; K42.9 Umbilical hernia without obstruction or gangrene; Z82.49 Family history of ischemic heart disease and other diseases of the circulatory system; Z86.79 Personal history of other diseases of the circulatory system; Z98.61 Coronary angioplasty status; Z79.899 Other long term (current) drug therapy
CPT/HCPCS: 36415; 71260; 74177; 80048; 80053; 81001; 82962; 83690; 83880; 84484; 85025; 86141; 87081; 93005; 93306; G0378; J2470